=== PATIENT | male | born 1980 | race Caucasian/White ===

== ENCOUNTER 2017-02-03 20:42 | Inpatient (IN) | payer MEDICAID, OTHER ==
[~2017-02-03] VITALS: Ht 162.6 cm; Wt 65.6 kg
[2017-02-03 20:58] VITALS: BP 141/94
--- NOTE | 2017-02-03 21:10 | NUR ---
Pt placed in a chair in view of staff until a bed is available.
--- NOTE | 2017-02-03 22:15 | NUR ---
PATIENT TO ER BED 7.
--- NOTE | 2017-02-03 22:30 | NUR ---
PATIENT BEING EVALUATED BY DR. TREVINO.
[2017-02-03 23:09] LABS: BASOPHILS # (AUTO) 0.3 K/uL (0.00-0.22); BASOPHILS % (AUTO) 2.5 % (0.0-2.0); EOSINOPHILS # (AUTO) 0.1 K/uL (0-0.4); HEMATOCRIT 45.8 % (36-52); HEMOGLOBIN 15.1 g/dL (12.0-18.0); LYMPHOCYTES # (AUTO) 1.4 K/uL (2.0-11.5); LYMPHOCYTES % (AUTO) 13.5 % (20.5-51.1); MEAN CORPUSCULAR HEMOGLOBIN 29 pg (27-31); MEAN CORPUSCULAR HGB CONC 33 g/dL (33-37); MEAN CORPUSCULAR VOLUME 87 fL (80-94); MONOCYTES # (AUTO) 0.6 K/uL (0.8-1.0); MONOCYTES % (AUTO) 5.7 % (1.7-9.3); NEUTROPHILS # (AUTO) 8.3 K/uL (1.8-7.7); PLATELET COUNT (AUTO) 258 K/uL (140-450); RED BLOOD CELL COUNT(AUTO) 5.28 MIL/uL (4.20-6.10); RED CELL DISTRIBUTION WIDTH 12.1 % (11.6-13.7); WHITE BLOOD COUNT (AUTO) 10.7 K/uL (4.8-10.8)
[2017-02-03 23:13] LABS: NEUTROPHILS % (AUTO) 77.3 % (42.2-75.2)
[2017-02-03 23:15] LABS: ACETAMINOPHEN < 0.5 ug/ml (10-30); ALANINE AMINOTRANSFERASE 62 U/L (12-78); ALBUMIN 4.2 g/dL (3.4-5.0); ALCOHOL, BLOOD 117 mg/dL (<3); ALKALINE PHOSPHATASE 126 U/L (46-116); ANION GAP 16.9 (8-16); ASPARTATE AMINOTRANSFERASE 51 U/L (15-37); CALCIUM 8.5 mg/dL (8.5-10.1); CARBON DIOXIDE 27.1 mmol/L (21-32); CHLORIDE 97 mmol/L (98-107); CREATINE KINASE, TOTAL 246 U/L (39-308); CREATININE 0.9 mg/dL (0.6-1.3); GFR ARICAN-AMERICAN 121 mL/min (>90); GFR NON ARICAN-AMERICAN 100 mL/min (>90); GLUCOSE 102 mg/dL (74-106); SALICYLATE < 2.8 mg/dL (2.8-20.0); SODIUM SERUM 138 mmol/L (136-145); TOTAL BILIRUBIN 1.2 mg/dL (0.0-1.0); TOTAL PROTEIN, SERUM 7.8 g/dL (6.4-8.2); UREA NITROGEN, BLOOD 5 mg/dL (7-18)
[2017-02-04] MEDS ORDERED: NACL 0.9% 1,000 ML IV ONE (00:05)
[2017-02-04 00:40] LABS: APPEARANCE,URINE CLEAR (CLEAR); BILIRUBIN,URINE NEGATIVE (NEGATIVE); BLOOD, URINE NEGATIVE (NEGATIVE); COLOR,URINE YELLOW (YELLOW); LEUKOCYTE ESTERASE ,URINE NEGATIVE (NEGATIVE); NITRITE, URINE NEGATIVE (NEGATIVE); PROTEIN,URINE NEGATIVE (NEGATIVE); UGLUCOSE NEGATIVE (NEGATIVE); UROBILINOGEN,URINE 0.2 EU/dL (0.2 - 1)
[2017-02-04] MEDS ORDERED: ACETAMINOPHEN 325 MG TAB PO PRN (00:40)
[2017-02-04] MEDS ORDERED: LORazepam 1 MG TAB PO PRN (00:40)
[2017-02-04] MEDS ORDERED: MORPHINE SULFATE 2 MG/ML SYR IVP PRN (00:40)
[2017-02-04] MEDS ORDERED: DOCUSATE SODIUM 100 MG GELCAP PO PRN (00:40)
[2017-02-04 00:52] LABS: AMPHETAMINE, URINE NEG. ng/ml (NEG <=1000); BARBITURATE, URINE NEG. ng/ml (NEG <=200); BENZODIAZEPINE, URINE NEG. ng/mL (NEG <=200); CANNABINOID, URINE NEG. ng/mL (NEG <=50); COCAINE, URINE NEG. ng/mL (NEG <=300); OPIATE, URINE NEG. ng/mL (NEG <=2000); PHENCYCLIDINE SCREEN,URINE NEG. ng/mL (NEG <=25)
[2017-02-04 00:55] LABS: BACTERIA,URINE None Seen /HPF (None Seen); RBC,URINE NONE SEEN /HPF (0-5); SQUAMOUS EPITHELIAL CELL,UR None Seen /LPF (0-3 (FEW)); WBC,URINE NONE SEEN /HPF (0-5)
[2017-02-04 01:18] LABS: PARTIAL THROMBOPLASTIN TIME 25.1 secs (22-35.6); PROTHROMBIN TIME 10.1 secs (10.8-13.4)
[2017-02-04 01:29] LABS: FREE T4 (FREE THYROXINE) 1.26 ng/dL (0.76-1.46); MAGNESIUM 2.1 mg/dL (1.8-2.4); PHOSPHORUS 3.7 mg/dL (2.5-4.9); THYROID STIMULATING HORMONE 1.75 uIU/mL (0.34-3.76)
--- NOTE | 2017-02-04 01:59 | NUR ---
Patient will be admitted to care of DR WHELAN. Admited to TELE (ICU CONVENIENCE). Will go to BED 6. Belongings list completed. Report to CECILE CHRISTOPHER.
--- NOTE | 2017-02-04 02:50 | NUR ---
ADMITTED THIS 36 YEAR OLD MALE PATIENT FROM ER PER [facility], DUE TO NOT FEELING WELL WITH THE ADMITTING DIAGNOSIS OF SUICIDAL IDEATION ON 5150 HOLD. ASSISTED TO ICU 6; ADMISSION PROTOCOL/ ASSESSMENT DONE; TELE STATUS. PATIENT IS ALERT AND ORIENTED. HOOKED TO RELATIONS COORDINATOR, SCOPE SHOWS ON SINU RHYTHM TO TACHY HR 82/MIN NO ARRHYTHMIAS SEEN. IV CANNULA ON LEFT FOREARM AND STARTED ON IVF NORMAL SALINE 100 ML/HR. ON ROOM AIR, BREATHING EVEN AND UNLABORED.
[2017-02-04] MEDS: NACL 0.9% 1,000 ML IV SCH ×4 (02:58→22:54)
--- NOTE | 2017-02-04 03:00 | NUR ---
MRSA SCREENING DONE; SPECIMENT SENT TO LAB.
[2017-02-04 04:00] VITALS: BP 119/65
[2017-02-04] MEDS: LORazepam 1 MG TAB PO SCH ×3 (05:30→17:08)
[2017-02-04 05:48] LABS: BASOPHILS # (AUTO) 0.3 K/uL (0.00-0.22); BASOPHILS % (AUTO) 2.4 % (0.0-2.0); EOSINOPHILS # (AUTO) 0.2 K/uL (0-0.4); EOSINOPHILS % (AUTO) 2.1 % (0.0-4.0); HEMATOCRIT 42.8 % (36-52); HEMOGLOBIN 14.5 g/dL (12.0-18.0); LYMPHOCYTES # (AUTO) 1.1 K/uL (2.0-11.5); LYMPHOCYTES % (AUTO) 10.4 % (20.5-51.1); MEAN CORPUSCULAR HEMOGLOBIN 29 pg (27-31); MEAN CORPUSCULAR HGB CONC 34 g/dL (33-37); MEAN CORPUSCULAR VOLUME 86 fL (80-94); MONOCYTES # (AUTO) 0.7 K/uL (0.8-1.0); MONOCYTES % (AUTO) 7.1 % (1.7-9.3); NEUTROPHILS # (AUTO) 8.1 K/uL (1.8-7.7); PLATELET COUNT (AUTO) 191 K/uL (140-450); RED BLOOD CELL COUNT(AUTO) 4.97 MIL/uL (4.20-6.10); RED CELL DISTRIBUTION WIDTH 12.1 % (11.6-13.7); WHITE BLOOD COUNT (AUTO) 10.4 K/uL (4.8-10.8)
[2017-02-04 05:56] LABS: ANION GAP 11.8 (8-16); CALCIUM 7.8 mg/dL (8.5-10.1); CARBON DIOXIDE 27.6 mmol/L (21-32); CREATININE 0.8 mg/dL (0.6-1.3); POTASSIUM 3.4 mmol/L (3.5-5.1)
[2017-02-04 06:00] LABS: ALCOHOL, BLOOD < 3 mg/dL (<3); PHOSPHORUS 3.3 mg/dL (2.5-4.9)
--- NOTE | 2017-02-04 06:00 | NUR ---
V/S STABLE AND WITHIN NORMAL RANGE. SLEPT AT LONG INTERVAL.
[2017-02-04 08:00] VITALS: BP 118/72
--- NOTE | 2017-02-04 08:00 | NUR ---
RECEIVE PATIENT SLEEPING. AWAKEN EASILY. ALERT AND ORIENTED TO NAME PLACE AND TIME. HE STATED THAT HE DO NOT FEEL WELL BUT WAS NON-SPECIFIC WITH COMPLAINT. FELT HANGER SHOWS SINUS RHYTHM. BREAKFAST TRAY SET UP.
--- NOTE | 2017-02-04 08:30 | NUR ---
AFTER EATING PART OF HIS BREAKFAST, HE VOMITED ALL UNDIGESTED FOOD. MEDICATED WITH IV ZOFRAN 4MG. WILL CONTINUE TO MONITOR.
[2017-02-04] MEDS: ONDANSETRON 4 MG/2 ML VIAL IM/IVP PRN ×2 (08:34→14:04)
[2017-02-04] MEDS ORDERED: PNEUMOCOCCAL VACCINE 23 MCG/0.5 ML VIAL IMVAC SCH (09:00)
--- NOTE | 2017-02-04 09:30 | NUR ---
NO S/S OF NAUSEA. GIVEN ICE CHIPS AND TOLERATED WELL. AM MEDICATION GIVEN. PATIENT SAYS THAT HE DO NOT FEEL NAUSEATED @ THIS TIME. WILL CONTINUE TO MONITOR.
[2017-02-04] MEDS: FOLIC ACID 1 MG TAB PO SCH ×2 (09:36→09:39)
[2017-02-04] MEDS: MULTIVITAMIN 1 TAB PO SCH (09:39)
[2017-02-04] MEDS: THIAMINE 100 MG TAB PO SCH (09:39)
[2017-02-04] MEDS: HYDROcodone/APAP 7.5/325 MG 1 TAB PO PRN ×2 (09:40→15:37)
[2017-02-04] MEDS: ESCITALOPRAM 20 MG TAB PO SCH (09:40)
[2017-02-04 10:00] VITALS: BP 120/60
--- NOTE | 2017-02-04 10:32 | NUR ---
CONTINUE TO MONITOR . HOB ELEVATED @ 35 DEGREES. NO S/S OF [place] @ THIS TIME.
--- NOTE | 2017-02-04 12:15 | NUR ---
Patient had lunch and shortly after he vomited large amount of undigested food. Dr. Preeti gutierrez at this time and informed. Plan to place on clear liquids for a while.
--- NOTE | 2017-02-04 14:00 | NUR ---
Patient medicated for the nausea. He c/o feeling anxious and depressed. Medicated with ativan 2mg po.
[2017-02-04] MEDS: LORazepam 1 MG TAB PO PRN (14:44)
--- NOTE | 2017-02-04 14:57 | NUR ---
Watching TV. No s/s of discomfort.
[2017-02-04 16:00] VITALS: BP 131/68
--- NOTE | 2017-02-04 16:00 | NUR ---
PO intake of saltine crackers, ice chips and water. No nausea/vomiting noted. Patient is alert and says that he feel depressed and request for ativan. He is polite and cooperative.
--- NOTE | 2017-02-04 18:00 | NUR ---
Resting quietly and watching TV. No s/s of discomfort.
--- NOTE | 2017-02-04 19:00 | NUR ---
Report given to film processing shift supervisor nurse Naye.
--- NOTE | 2017-02-04 19:34 | NUR ---
RECEIVED REPORT FROM ALVA CHRISTOPHER. PATIENT IS RESTING IN BED, BUT IS AROUSED BY NAME. PATIENT IS TELEMETRY STATUS. NO SIGNS OF SOB OR DISTRESS NOTED. BREATHING IS EVEN AND UNLABORED. THERE IS A #20 IN THE LEFT FOREARM RECEIVING NORMAL SALINE AT 100 ML/HR. SITE IS DRY, INTACT, AND ASYMPTOMATIC. SCDS ARE IN PLACE FOR VTE PROPHYLAXIS. EXPLAINED PLAN OF CARE TO INCLUDE TELEMETRY MONITORING, SCHEDULED MEDICATIONS, AND CLOSE OBSERVATION R/T DX SUICIDAL IDEATION AND 5150 HOLD. PATIENT VERBALIZED UNDERSTANDING. PATIENT'S NEEDS MET AT THIS TIME. HOB AT 30 DEGREES WITH BED IN LOW POSITION. WILL CONTINUE TO MONITOR PATIENT.
[2017-02-04 20:00] VITALS: BP 125/76
--- NOTE | 2017-02-04 21:45 | NUR ---
PATIENT RESTING IN BED. NO SIGNS OF DISTRESS OR DISCOMFORT NOTED. CONTINUE TO MONITOR PATIENT.
[2017-02-05] VITALS: BP 119/63
--- NOTE | 2017-02-05 00:20 | NUR ---
PATIENT REQUESTED SNACK. PROVIDED PATIENT WITH 2 PACKETS OF SALTINES AND 1 BOX OF APPLE JUICE WITH CUP OF ICE CHIPS. PATIENT UNABLE TO TOLERATE APPLE JUICE WITH ICE CHIPS AND BEGAN COUGHING WITH NO SPUTUM NOTED. INSTRUCTED PATIENT TO NOT DRINK COLD LIQUIDS AND OFFERED PATIENT CHICKEN BROTH. PATIENT AGREED. CONTINUE TO MONITOR.
--- NOTE | 2017-02-05 00:40 | NUR ---
PATIENT'S COUGHING SUBSIDED. PATIENT RESTING COMFORTABLY IN BED. WILL CONTINUE TO MONITOR PATIENT.
[2017-02-05 04:00] VITALS: BP 117/69
--- NOTE | 2017-02-05 04:10 | NUR ---
PATIENT RESTING COMFORTABLY IN BED WITH NO SIGNS OF SOB OR DISCOMFORT NOTED. WILL CONTINUE TO MONITOR PATIENT.
--- NOTE | 2017-02-05 04:50 | NUR ---
REPRODUCTION TECHNICIAN AT BEDSIDE FOR SCHEDULED LAB DRAWS.
[2017-02-05 04:58] LABS: BASOPHILS # (AUTO) 0.1 K/uL (0.00-0.22); BASOPHILS % (AUTO) 1.2 % (0.0-2.0); EOSINOPHILS # (AUTO) 0.4 K/uL (0-0.4); EOSINOPHILS % (AUTO) 4.1 % (0.0-4.0); HEMOGLOBIN 13.4 g/dL (12.0-18.0); LYMPHOCYTES % (AUTO) 11.8 % (20.5-51.1); MEAN CORPUSCULAR HEMOGLOBIN 29 pg (27-31); MEAN CORPUSCULAR HGB CONC 34 g/dL (33-37); MEAN CORPUSCULAR VOLUME 86 fL (80-94); MONOCYTES # (AUTO) 0.4 K/uL (0.8-1.0); MONOCYTES % (AUTO) 4.6 % (1.7-9.3); NEUTROPHILS # (AUTO) 6.9 K/uL (1.8-7.7); NEUTROPHILS % (AUTO) 78.3 % (42.2-75.2); PLATELET COUNT (AUTO) 169 K/uL (140-450); RED BLOOD CELL COUNT(AUTO) 4.64 MIL/uL (4.20-6.10); RED CELL DISTRIBUTION WIDTH 12.3 % (11.6-13.7)
[2017-02-05] MEDS: LORazepam 1 MG TAB PO SCH ×3 (04:58→20:55)
--- NOTE | 2017-02-05 06:05 | NUR ---
PATIENT RESTING COMFORTABLY IN BED WITH NO SIGNS OF SOB OR DISCOMFORT NOTED. BREATHING IS EVEN AND UNLABORED. WILL CONTINUE TO MONITOR PATIENT.
[2017-02-05 06:21] LABS: ANION GAP 9.8 (8-16); CALCIUM 7.9 mg/dL (8.5-10.1); CARBON DIOXIDE 26.9 mmol/L (21-32); CREATININE 0.8 mg/dL (0.6-1.3); POTASSIUM 3.7 mmol/L (3.5-5.1)
--- NOTE | 2017-02-05 07:10 | NUR ---
PATIENT IN STABLE CONDITION. ALL PATIENT'S NEEDS ATTENDED TO DURING SHIFT. ENDORSED CONTINUITY OF CARE TO CHARGE NURSE NINI CHRISTOPHER.
[2017-02-05 07:57] LABS: WHITE BLOOD COUNT (AUTO) 8.8 K/uL (4.8-10.8)
[2017-02-05 08:00] VITALS: BP 121/71
--- NOTE | 2017-02-05 08:00 | NUR ---
AWAKE AND ALERT. COOPERATIVE. STATES HE STILL HAS SUICIDAL THOUGHTS BY JUMPING OFF A BRIDGE AT TIMES. IV 0.9 NS INFUSING AT 100 ML/HR VIA LEFT FA IV SITE. BREAKFAST SERVED. FED SELF. ATE 75%.
[2017-02-05] MEDS: ESCITALOPRAM 20 MG TAB PO SCH (08:49)
[2017-02-05] MEDS: THIAMINE 100 MG TAB PO SCH (08:49)
[2017-02-05] MEDS: FOLIC ACID 1 MG TAB PO SCH (08:49)
[2017-02-05] MEDS: MULTIVITAMIN 1 TAB PO SCH (08:50)
[2017-02-05] MEDS: NACL 0.9% 1,000 ML IV SCH ×2 (08:50→20:57)
[2017-02-05 09:44] LABS: T4 (THYROXINE) 8.4 ug/dL (4.5-12.0)
--- NOTE | 2017-02-05 09:45 | NUR ---
ASSISTED TO BEDSIDE COMMODE. GAIT STEADY. HAD LARGE AMT. SOFT FORMED BROWNISH STOOLS. BATH AND ORAL CARE DONE.
--- NOTE | 2017-02-05 10:17 | NUR ---
PATIENT HAS BEEN SCREENED AND CATEGORIZED LOW NUTRITION RISK. PATIENT WILL BE SEEN WITHIN 7 DAYS OF ADMISSION. 02/10/[address]
[2017-02-05] MEDS ORDERED: PROBIOTIC SCREEN 1 EA MISC MC PRN (10:55)
[2017-02-05 12:00] VITALS: BP 125/91
--- NOTE | 2017-02-05 12:33 | NUR ---
CM NOTE INITIAL REVIEW FAXED TO MARIA R GRANT [phone] [facility] PH# [phone] AND TO OLIVIA JESUS [phone] PH# [phone] [place] [id number] Addendum: 02/05/17 at 1236 by Sarah Fischer [facility] TRACKING# [id number]
--- NOTE | 2017-02-05 12:54 | NUR ---
SS NOTE: SENT PSYCH PLACEMENT INQUIRY TO [facility] (PT HAS [facility]), RECEIVED FAX CONFIRMATION
--- NOTE | 2017-02-05 13:35 | NUR ---
PT. VOMITED LARGE AMOUNT OF UNDIGESTED FOOD. STATES HE USUALLY GETS DIZZY/LIGHTHEADED WHEN HE EATS, THEN HE THROWS UP. ZOFRAN [address] ALBERTO NOTIFIED.
[2017-02-05] MEDS: ONDANSETRON 4 MG/2 ML VIAL IM/IVP PRN (13:38)
--- NOTE | 2017-02-05 14:00 | NUR ---
NO N/V. SLEEPING AT THIS TIME.
--- NOTE | 2017-02-05 15:00 | NUR ---
PT MADE AWARE OF CHANGE IN DIET TO CLEAR LIQUIDS.
--- NOTE | 2017-02-05 16:00 | NUR ---
PT. IS LOOKING FOR HIS CLOTHES AND HIS BLACK WALLET WITH ID'S AND KEYS. STATES HE CAME TO THE HOSPITAL WEARING BLUE JEANS, BLUE SHIRT, WHITE SHOES AND WHITE SOCKS. HE ONLY HAS BOXER SHORTS AND WHITE UNDERSHIRT AT BEDSIDE. CHECKED WITH ER, NO BELONGINGS FOUND. SECURITY RAMA AND SHIRA ALSO MADE AWARE.
[2017-02-05] MEDS: LORazepam 1 MG TAB PO PRN (16:35)
--- NOTE | 2017-02-05 16:35 | NUR ---
PT. C/O FEELING VERY ANXIOUS. ASKING FOR SOMETHING TO CALM HIM DOWN. ATIVAN 2 MG PO GIVEN.
[2017-02-05 16:57] VITALS: BP 132/94
--- NOTE | 2017-02-05 17:10 | NUR ---
WATCHING TV. CALM AT THIS TIME.
--- NOTE | 2017-02-05 18:00 | NUR ---
STANDS AT BEDSIDE TO URINATE. TOLERATED ACTIVITY WELL. ATE DINNER, CLEAR LIQUIDS, NO N/V.
--- NOTE | 2017-02-05 19:30 | NUR ---
RECEIVED REPORT FROM AM RN AT BEDSIDE, PT IS AAOX4, ABLE TO FOLLOW COMMANDS AND MAKE NEEDS KNOWN, COOPERATIVE, STILL HAS SUICIDAL THOUGHTS BY JUMPING OFF A BRIDGE AT TIMES PER PATIENT STATED. NO HALLUCINATION AT THIS TIME, VSS, DENIES PAIN, NO SOB/DISTRESS, CLEAR LUNG SOUNDS, ON RA, DENIES CHEST PAIN, SR ON TICKET SALES AGENT, SOFT ABDOMEN WITH ACTIVE BOWEL SOUNDS, CONTINENT WITH B&B'S, ABLE TO MOVE ALL EXTREMITIES, IV SITE TO LEFT FOREARM 20GA RUNNING 0.9 NS AT 50 ML/HR. SKIN IS WARM AND DRY TO TOUCH, SEVERAL BLEEDING SPOTS ON RIGHT ARM NOTED DUE TO SELF SCRATCHING BY PATIENT. EXPLAINED PLAN OF CARE TO PATIENT, PATIENT VERBALIZED UNDERSTANDING, SAFETY MEASURES IN PLACE, CALL LIGHT WITHIN REACH, WILL CONTINUE TO MONITOR.
[2017-02-05 20:00] VITALS: BP 117/84
[2017-02-06] VITALS: BP 122/80
--- NOTE | 2017-02-06 | NUR ---
PT IS ASLEEP IN BED, COOPERATIVE, STILL STATED SUICIDAL THOUGHT, VSS, WILL CONTINUE TO MONITOR.
[2017-02-06 04:00] VITALS: BP 116/68
--- NOTE | 2017-02-06 04:00 | NUR ---
NO CHANGE OF CONDITION AT THIS TIME, COOPERATIVE, VSS.
[2017-02-06] MEDS: LORazepam 1 MG TAB PO SCH ×3 (04:47→20:34)
[2017-02-06 04:50] LABS: BASOPHILS # (AUTO) 0.2 K/uL (0.00-0.22); EOSINOPHILS # (AUTO) 0.5 K/uL (0-0.4); EOSINOPHILS % (AUTO) 6.2 % (0.0-4.0); HEMATOCRIT 41.6 % (36-52); HEMOGLOBIN 13.7 g/dL (12.0-18.0); LYMPHOCYTES # (AUTO) 0.9 K/uL (2.0-11.5); LYMPHOCYTES % (AUTO) 11.1 % (20.5-51.1); MEAN CORPUSCULAR HEMOGLOBIN 29 pg (27-31); MEAN CORPUSCULAR HGB CONC 33 g/dL (33-37); MEAN CORPUSCULAR VOLUME 88 fL (80-94); MONOCYTES # (AUTO) 0.6 K/uL (0.8-1.0); MONOCYTES % (AUTO) 7.4 % (1.7-9.3); NEUTROPHILS # (AUTO) 5.7 K/uL (1.8-7.7); NEUTROPHILS % (AUTO) 72.3 % (42.2-75.2); PLATELET COUNT (AUTO) 167 K/uL (140-450); RED BLOOD CELL COUNT(AUTO) 4.76 MIL/uL (4.20-6.10); RED CELL DISTRIBUTION WIDTH 12.5 % (11.6-13.7); WHITE BLOOD COUNT (AUTO) 7.9 K/uL (4.8-10.8)
[2017-02-06 05:37] LABS: ANION GAP 12.8 (8-16); CARBON DIOXIDE 25.6 mmol/L (21-32); CREATININE 0.8 mg/dL (0.6-1.3); POTASSIUM 3.4 mmol/L (3.5-5.1)
--- NOTE | 2017-02-06 07:44 | NUR ---
RECEIVED REPORT FROM ASHWIN LUND. PT IS A/O X4. VERBALLY RESPONSIVE. ABLE TO MAKE NEEDS KNOWN. DENIES ANY PAIN OR DISCOMFORT. DENIES ANY SUICIDAL THOUGHTS AT THIS MOMENT. DENIES ANY N/V. BILATERAL PERRLA NOTED IN EYES. PT IS ON RA. SATURATING AT 96%. SR ON MONITOR. SKIN IS INTACT. LEFT FOREARM 20 GAUGE PERIPHERAL IV NOTED. INTACT AND PATENT. ABLE TO MOVE ALL EXTREMITIES. ABLE TO AMBULATE WITH STEADY GAIT. PT ABLE TO VOID WITH URINAL. CLEAR YELLOW URINE NOTED. SAFETY PRECAUTION MAINTAINED. CALL LIGHT WITHIN REACH. BED AT LOWEST SETTINGS. WILL CONTINUE TO MONITOR.
[2017-02-06 08:00] VITALS: BP 118/86
--- NOTE | 2017-02-06 08:30 | NUR ---
IV NOTED TO BE CLOTTED. LEFT HAND IV D/C. TOLERATED WELL. NEW IV STARTED IN RIGHT FOREARM. TOLERATED WELL. IV INTACT AND PATENT. BLOOD RETURN NOTED.
[2017-02-06] MEDS: MULTIVITAMIN 1 TAB PO SCH (09:00)
[2017-02-06] MEDS: THIAMINE 100 MG TAB PO SCH (09:00)
--- NOTE | 2017-02-06 09:00 | NUR ---
MEDICATION ADMINISTERED ORDERED. TOLERATED WELL. WILL CONTINUE TO MONITOR FOR CHANGES
[2017-02-06] MEDS: FOLIC ACID 1 MG TAB PO SCH (09:01)
[2017-02-06] MEDS: ESCITALOPRAM 20 MG TAB PO SCH (09:01)
--- NOTE | 2017-02-06 09:55 | NUR ---
DR. GALDAMEZ AT BEDSIDE TO SEE PT. WILL F/U WITH NEW ORDERS.
--- NOTE | 2017-02-06 09:59 | NUR ---
DR. GARCIA AT BEDSIDE TO SEE PT. WILL F/U WITH NEW ORDERS. Addendum: 02/06/17 at 1133 by Vijay Pollack RN NOTIFIED DR. GARCIA OF LOW POTASSIUM. MD ADAMS.
--- NOTE | 2017-02-06 10:45 | NUR ---
MEDICATION ADMINISTERED ORDERED. TOLERATED WELL. WILL CONTINUE TO MONITOR.
[2017-02-06] MEDS: QUEtiapine FUMARATE 25 MG TAB PO SCH ×2 (10:49→20:34)
[2017-02-06 11:23] LABS: HEMOGLOBIN A1C 5.7 % (4.8-5.6)
--- NOTE | 2017-02-06 12:25 | NUR ---
CM NOTE CONCURRENT REVIEW FAXED TO [facility] [phone] [facility] PH# [phone] AND TO OLIVIA [facility] [phone] PH# [phone] [place] [id number] TRACKING# [id number]
--- NOTE | 2017-02-06 13:02 | NUR ---
SS NOTE: SHANNON ANDERSON FROM [facility] ([phone]), PT'S INFORMATION IS PENDING REVIEW
--- NOTE | 2017-02-06 13:30 | NUR ---
MEDICATION GIVEN ORDERED. TOLERATED WELL.
--- NOTE | 2017-02-06 14:30 | NUR ---
SECURITY AT BEDSIDE. ALL BELONGINGS WITH PATIENT. CONTRABAND STILL WITH SECURITY AT THIS TIME
[2017-02-06 16:00] VITALS: BP 108/78
[2017-02-06] MEDS: NACL 0.9% 1,000 ML IV SCH (16:54)
--- NOTE | 2017-02-06 17:36 | NUR ---
PT EATING DINNER. TOLERATING WELL. NO C/O OF N/V. WILL CONTINUE TO MONITOR.
--- NOTE | 2017-02-06 19:16 | NUR ---
REPORT GIVEN TO ASHWIN LUND. PT IS STABLE.
--- NOTE | 2017-02-06 19:16 | NUR ---
RECEIVED REPORT FROM LEANDRA RN AT BEDSIDE, PT IS AAOX4, ABLE TO FOLLOW COMMANDS AND MAKE NEEDS KNOWN, COOPERATIVE, NO SUICIDAL THOUGHTS OR HALLUCINATION AT THIS TIME. VSS, DENIES PAIN, NO SOB/DISTRESS, CLEAR LUNG SOUNDS, ON RA, DENIES CHEST PAIN, SR ON COMPACTING MACHINE OPERATOR/TENDER, SOFT ABDOMEN WITH ACTIVE BOWEL SOUNDS, CONTINENT WITH B&B'S, ABLE TO MOVE ALL EXTREMITIES, IV SITE TO RIGHT FOREARM 20GA RUNNING 0.9 NS AT 50 ML/HR. SKIN IS INTACT, WARM AND DRY TO TOUCH, EXPLAINED PLAN OF CARE TO PATIENT, PATIENT VERBALIZED UNDERSTANDING, SAFETY MEASURES IN PLACE, CALL LIGHT WITHIN REACH, WILL CONTINUE TO MONITOR.
--- NOTE | 2017-02-06 21:00 | NUR ---
SCHEDULED MEDICATION GIVEN, EDUCATED ON MEDICATION INDICATION AND SIDE EFFECTS, PT VERBALIZED UNDERSTANDING.
[2017-02-07] VITALS: BP_SYST 121; BP_SYST 122; BP_DIAS 72; BP_DIAS 79
--- NOTE | 2017-02-07 | NUR ---
PT IS ASLEEP IN BED, NO S/S OF DISTRESS, VSS, NO C/O SUICIDAL IDEATION.
[2017-02-07] MEDS: LORazepam 1 MG TAB PO SCH ×3 (04:57→21:08)
[2017-02-07 05:57] LABS: CALCIUM 8.1 mg/dL (8.5-10.1); CARBON DIOXIDE 27.7 mmol/L (21-32); CREATININE 0.8 mg/dL (0.6-1.3); POTASSIUM 3.7 mmol/L (3.5-5.1)
--- NOTE | 2017-02-07 07:10 | NUR ---
REPORT GIVEN TO ASHWIN RAMIREZ FOR CONTINUE OF CARE, PT IS IN STABLE CONDITION AT THIS TIME.
--- NOTE | 2017-02-07 07:30 | NUR ---
RECEIVED REPORT FROM KEVON RN AT BEDSIDE, PT IS AAOX4, ABLE TO FOLLOW COMMANDS AND MAKE NEEDS KNOWN, PT STATED HE DOES NOT HAVE SUICIDAL THOUGHTS OR HALLUCINATION AT THIS TIME. VSS,BEDSIDE MONITOR SHOWS SR. PT DENIES PAIN, NO SOB/DISTRESS, CLEAR LUNG SOUNDS, SOFT ABDOMEN WITH ACTIVE BOWEL SOUNDS, ABLE TO MOVE ALL EXTREMITIES, IV SITE TO RIGHT FOREARM 20GA RUNNING 0.9 NS AT 50 ML/HR. SKIN IS INTACT, WARM AND DRY TO TOUCH, EXPLAINED PLAN OF CARE TO PATIENT, PATIENT VERBALIZED UNDERSTANDING, SAFETY MEASURES IN PLACE, CALL LIGHT WITHIN REACH, WILL CONTINUE TO MONITOR.
[2017-02-07 08:00] VITALS: BP 128/70
[2017-02-07] MEDS: FOLIC ACID 1 MG TAB PO SCH (09:14)
[2017-02-07] MEDS: MULTIVITAMIN 1 TAB PO SCH (09:14)
[2017-02-07] MEDS: ESCITALOPRAM 20 MG TAB PO SCH (09:14)
[2017-02-07] MEDS: THIAMINE 100 MG TAB PO SCH (09:14)
[2017-02-07] MEDS: QUEtiapine FUMARATE 25 MG TAB PO SCH ×2 (09:15→21:07)
--- NOTE | 2017-02-07 09:30 | NUR ---
DUE MEDS GIVEN, PT TOLERATED WELL.
--- NOTE | 2017-02-07 10:19 | NUR ---
SS NOTE: SHANNON ANDERSON FROM [facility] ([phone]), PT HAS BEEN ACCEPTED BUT THEY DO NOT CURRENTLY HAVE ANY BEDS AVAILABLE
--- NOTE | 2017-02-07 11:19 | NUR ---
CM NOTE CONCURRENT REVIEW FAXED TO [facility] [phone] [facility] PH# [phone] AND TO OLIV[facility] [phone] PH# [phone] [place] [id number] TRACKING# [id number]
--- NOTE | 2017-02-07 12:06 | NUR ---
ASKED PT ANY SUICIDE IDEATION OR PLAN. PT STATED " I AM THINKING ABOUT IT".
--- NOTE | 2017-02-07 15:05 | NUR ---
PT SLEEPING IN BED, NO S/S OF RESPIRATORY DISTRESS NOTED. VSS
[2017-02-07 16:00] VITALS: BP 118/66
--- NOTE | 2017-02-07 19:00 | NUR ---
PT WILL BE TRANSFERRED TO TELE 121 B WITH 1:1 SITTER, REPORT GIVEN TO TARAS CHRISTOPHER.
[2017-02-07 20:00] VITALS: BP 143/89
--- NOTE | 2017-02-07 20:00 | NUR ---
RECEIVED FROM ICU AWAKE,ALERT,ORIENTED. VERBALLY RESPONSIVE. STILL VERBALIZED SUICIDAL THOUGHTS BUT NOTED TO BE PLEASANT AND MORE ENGAGED. AFEBRILE, NOT IN ACUTE DISTRESS. VERBALIZED BEING A LITTLE ANXIOUS. SITTER AT BEDSIDE. VITAL SIGNS ARE OTHERWISE STABLE, WILL CONTINUE TO MONITOR. NEEDS ATTENDED.
--- NOTE | 2017-02-07 21:08 | NUR ---
DUE MEDICATIONS GIVEN SCHEDULED.
[2017-02-07 22:38] VITALS: BP 143/89
[2017-02-08] VITALS: BP 122/79
--- NOTE | 2017-02-08 | NUR ---
ASLEEP, NOT IN ANY KIND OF DISTRESS. NO PAIN OR DISCOMFORT NOTED. SIDE RAILS UP, CALL LIGHT WITHIN REACH. SITTER AT BEDSIDE. KEPT WARM AND COMFORTABLE. VS REMAIN STABLE.
--- NOTE | 2017-02-08 04:00 | NUR ---
ASLEEP,NOT IN ANY KIND OF DISTRESS. NO PAIN OR DISCOMFORT NOTED. NO SIGNIFICANT CHANGE IN CONDITION. SITTER REMAINS AT BEDSIDE.
[2017-02-08] MEDS: LORazepam 1 MG TAB PO SCH ×3 (04:53→21:01)
--- NOTE | 2017-02-08 04:53 | NUR ---
PT. AWAKE,VERY PLEASANT. STATES THAT HIS SUICIDAL THOUGHTS ARE ON AND OFF AND THAT HE HAS NO CONCRETE PLAN AT THIS TIME. PT.A GOOD INSIGHT. DUE MEDICATION GIVEN. SITTER AT BEDSIDE AT ALL TIMES. WILL CONTINUE TO MONITOR. NEEDS ATTENDED.
--- NOTE | 2017-02-08 07:12 | NUR ---
ENDORSED CARE TO CARA RN STABLE.
--- NOTE | 2017-02-08 07:20 | NUR ---
REPORT RECEIVED FROM WEATHERIZATION INSTALLER, PT SLEEPING QUIETLY, RESP EVEN UNLABORED ON ROOM AIR IN NAD, AROUSES EASILY BY VOICE, DENIES PAIN OR DISCOMFORT, PT DENIES SI/HI, PT VERBALLY CONTRACTS FOR SAFETY, PLAN OF CARE REVIEWED, CALL SIMON WITHIN REACH, SIDE RAILS UP, BED LOCKED IN LOW POSITION, PT WITH 1:1 SITTER AT BEDSIDE, WILL CONTINUE TO MONITOR.
[2017-02-08 08:00] VITALS: BP 105/59
[2017-02-08] MEDS: NACL 0.9% 1,000 ML IV SCH (08:49)
[2017-02-08] MEDS: MULTIVITAMIN 1 TAB PO SCH (09:20)
[2017-02-08] MEDS: ESCITALOPRAM 20 MG TAB PO SCH (09:20)
[2017-02-08] MEDS: THIAMINE 100 MG TAB PO SCH (09:20)
[2017-02-08] MEDS: FOLIC ACID 1 MG TAB PO SCH (09:21)
[2017-02-08] MEDS: QUEtiapine FUMARATE 25 MG TAB PO SCH ×2 (09:21→21:01)
--- NOTE | 2017-02-08 12:29 | NUR ---
SS NOTE: SHANNON FELIX FROM [facility] ([phone]), PT HAS BEEN APRROVED BUT THEY DO NOT CURRENTLY HAVE ANY BEDS AVAILABLE
--- NOTE | 2017-02-08 13:40 | NUR ---
DUE MED GIVEN, PT DELORIS WELL, PT AWAKE ALERT, WALKING AROUND IN ROOM WITH STEADY GAIT, PT ADMITS STILL HEARING VOICES INTERMITTENTLY, PT REFUSES TO ELABORATE ON WHAT THE VOICES ARE SAYING, PT DENIES SI OR HI NOW, PT CALM AND INTERACTS PLEASANTLY, PT REMAINS ON 1:1 WATCH, PT AWARE OF PLAN, AWAITING BED AVAILABILITY AT [facility].
--- NOTE | 2017-02-08 14:40 | NUR ---
CM NOTE CONCURRENT REVIEW FAXED TO [facility] [phone] [facility] PH# [phone] AND TO OLIV[facility] [phone] PH# [phone] [place] [id number] TRACKING# [id number]
[2017-02-08 16:00] VITALS: BP 123/81
--- NOTE | 2017-02-08 18:40 | NUR ---
DR MUHAMMAD AT BEDSIDE
--- NOTE | 2017-02-08 19:27 | NUR ---
REPORT GIVEN TO FURNACE OPERATOR AND TENDER NURSE, PT IN STABLE CONDITION.
--- NOTE | 2017-02-08 20:00 | NUR ---
RECEIVED AWAKE, ALERT,ORIENTED. AFEBRILE, NOT IN ACUTE DISTRESS. DENIES PAIN BUT VERBALIZED FEELING A LITTLE ANXIOUS. DENIES SUICIDAL THOUGHTS AND CONCRETE PLAN AT THIS TIME. NOTED TO BE VERY PLEASANT, MORE ENGAGED AND WITH A VERY GOOD INSIGHT. PT. TAKEN OFF 5150 HOLD AND 1:1 SITTER BY CLINICAL PSYCHOLOGIST ARISTEO SANTIZO PHD WHO WAS IN THE UNIT AROUND SHIFT CHANGE. PT. MAY BE DISCHARGED FROM PSYCHIATRIC POINT OF VIEW PER ONCE MEDICALLY CLEARED. IV FLUIDS NORMAL SALINE INFUSING AT 50 ML/HR VIA RIGHT FOREARM # 20 IV LINE. SAO2=99% ON ROOM AIR. VS STABLE, WILL CONTINUE TO MONITOR. NEEDS ATTENDED.
--- NOTE | 2017-02-08 21:01 | NUR ---
DUE MEDICATIONS GIVEN SCHEDULED.
[2017-02-09] VITALS: BP 101/69
--- NOTE | 2017-02-09 | NUR ---
ASLEEP, NOT IN ANY KIND OF DISTRESS. NO PAIN OR DISCOMFORT NOTED. SIDE RAILS UP, CALL LIGHT WITHIN REACH. KEPT WARM AND COMFORTABLE. VS REMAIN STABLE. WILL CONTINUE TO MONITOR.
--- NOTE | 2017-02-09 04:00 | NUR ---
ASLEEP, NOT IN ACUTE DISTRESS. NO PAIN OR DISCOMFORT NOTED. CONDITION REMAINS STABLE. WILL CONTINUE TO MONITOR.
[2017-02-09] MEDS: LORazepam 1 MG TAB PO SCH ×2 (05:00→12:06)
--- NOTE | 2017-02-09 07:10 | NUR ---
ENDORSED CARE TO CARA RN.
--- NOTE | 2017-02-09 07:20 | NUR ---
REPORT RECEIVED FROM CERAMIC CHEMIST NURSE, PT SLEEPING QUIETLY, RESP EVEN UNLABORED ON RA, PT AROUSES EASILY TO VOICE, PT DENIES PAIN OR DISCOMFORT, PT PLEASANT AND COOPERATIVE, PLAN OF CARE REVIEWED, DENIES ANY IMMEDIATE NEEDS, CALL SIMON WITHIN REACH, SIDE RAILS UP, BED LOCKED IN LOW POSITION, WILL CONTINUE TO MONITOR.
[2017-02-09] MEDS: NACL 0.9% 1,000 ML IV SCH (07:41)
[2017-02-09 08:00] VITALS: BP 124/69
[2017-02-09] MEDS: QUEtiapine FUMARATE 25 MG TAB PO SCH (08:44)
[2017-02-09] MEDS: FOLIC ACID 1 MG TAB PO SCH (08:44)
[2017-02-09] MEDS: THIAMINE 100 MG TAB PO SCH (08:44)
[2017-02-09] MEDS: MULTIVITAMIN 1 TAB PO SCH (08:44)
[2017-02-09] MEDS: ESCITALOPRAM 20 MG TAB PO SCH (08:45)
--- NOTE | 2017-02-09 10:52 | NUR ---
CM NOTE CONCURRENT REVIEW FAXED TO [place] [facility] [phone] [facility] PH# [phone] AND TO OLIVIA [facility] [phone] PH# [phone] [place] [id number] TRACKING# [id number]
[2017-02-09] MEDS ORDERED: LORA-476 PO (15:15)
[2017-02-09] MEDS ORDERED: QUET25TA46 PO (15:15)
[2017-02-09 16:00] VITALS: BP 128/72
--- NOTE | 2017-02-09 16:00 | NUR ---
DISCHARGE INSTRUCTION AND RX GIVEN AND EXPLAINED TO PT, PT VERBALIZED FULL UNDERSTANDING, PT PROVIDED WITH APPOINTMENT INFO FOR FOLLOW UP, PT UP AMBULATING WITH STEADY GATI, PT DENIES SI/HI PLANS, PT SMILING AND LAUGHING, PLEASANTLY CONVERSING DURING DISCHARGE, PT STATES HE PLANS TO GO TO STORAGE UNIT IN [place], BUS PASS PROVIDED, INFORMATION ON HOME LESS RESOURCES PROVIDED TO PT BY SS, IV DC'D, CATH TIP INTACT, BLEEDING CONTROLLED, ESCORTED OUT BY CHIEF SECURITY AND SAFETY OFFICER AMBULATORY.
== END 2017-02-09 16:00 | disposition home or self-care (01) | DRG 52 ==
LOC: MED 20:42 → MIC 02-04 00:50 → MTU 02-07 19:45
PROVIDERS: ADMIT Family Medicine; ATTEND Family Medicine
DX: G92 Toxic encephalopathy (principal); F33.3 Major depressive disorder, recurrent, severe with psychotic symptoms; R45.851 Suicidal ideations; F10.129 Alcohol abuse with intoxication, unspecified; E78.5 Hyperlipidemia, unspecified; E87.6 Hypokalemia; Y90.5 Blood alcohol level of 100-119 mg/100 ml; F41.9 Anxiety disorder, unspecified; F41.0 Panic disorder [episodic paroxysmal anxiety]; Z59.0 Homelessness
CPT/HCPCS: 36415; 80048; 80053; 80305; 81001; 82150; 82550; 83036; 83690; 83735; 83880; 84100; 84436; 84439; 84443; 84479; 85025; 85610; 85730; 87081; 90732; 93005; 96360; 99285; G0480; G0482; J2405; J7030

== ENCOUNTER 2017-07-09 19:31 | Inpatient (IN) | payer MEDICAID, OTHER ==
[~2017-07-09] VITALS: Ht 162.6 cm; Wt 63.7 kg
[~2017-07-09 19:31] MED LIST: LORA-476 PO; QUET25TA46 PO
[2017-07-09 19:37] VITALS: BP 140/91
--- NOTE | 2017-07-09 19:43 | NUR ---
PT TAKEN TO BED 6
--- NOTE | 2017-07-09 19:44 | NUR ---
MARGARITO RODRIGUEZ CALLED TO REQUEST AN EVALUATING ON PT FOR A 5150 HOLD. PER AGENT 367 OFFICER WILL DISTPATCH TO THIS [facility].
--- NOTE | 2017-07-09 19:47 | NUR ---
Dr. Hardin evaluating patient at bedside.
--- NOTE | 2017-07-09 19:50 | NUR ---
36/M PRESENTS WITH SUICIDAL IDEATION, HX OF SCHIZOPHRENIA. PT STATES "IM HEARING VOICES TELLING ME TO KILL MYSELF". PT REPORTS HE HAS BEEN OFF HIS MEDICATIONS X 1 MONTH DUE TO NOT LIKE SIDE EFFECTS, LAST PSYCHIATRY VISIT WAS 2 MONTHS AGO. PT WAS ON 5150 APPRX 3 MONTHS AGO AND WAS IN A [facility]. PT DENIES ANY CONCRETE PLANS TO KILL HIMSELF AND STATES "I DO NOT WANT TO KILL MYSELF" DENIES ANY PAIN AT THIS TIME, DENIES SOB/CP, DENIES FEVER, N/V/D.
[2017-07-09 20:21] LABS: BASOPHILS # (AUTO) 0.1 K/uL (0.00-0.22); BASOPHILS % (AUTO) 1.6 % (0.0-2.0); EOSINOPHILS # (AUTO) 0.1 K/uL (0-0.4); HEMATOCRIT 51.1 % (36-52); LYMPHOCYTES % (AUTO) 15.2 % (20.5-51.1); MEAN CORPUSCULAR HEMOGLOBIN 30 pg (27-31); MEAN CORPUSCULAR HGB CONC 33 g/dL (33-37); MEAN CORPUSCULAR VOLUME 90 fL (80-94); MONOCYTES # (AUTO) 0.5 K/uL (0.8-1.0); MONOCYTES % (AUTO) 7.7 % (1.7-9.3); NEUTROPHILS # (AUTO) 5.2 K/uL (1.8-7.7); NEUTROPHILS % (AUTO) 73.5 % (42.2-75.2); PLATELET COUNT (AUTO) 219 K/uL (140-450); RED BLOOD CELL COUNT(AUTO) 5.71 MIL/uL (4.20-6.10); RED CELL DISTRIBUTION WIDTH 12.6 % (11.6-13.7); WHITE BLOOD COUNT (AUTO) 6.9 K/uL (4.8-10.8)
--- NOTE | 2017-07-09 20:27 | NUR ---
[place] [employer] AT BEDSIDE
--- NOTE | 2017-07-09 20:30 | NUR ---
MARGARITO RODRIGUEZ PLACED PT ON 5150 HOLD. PT RESTING ON BED COMFORTABLY. SECURITY HAS HOLD OF BELONGINGS
[2017-07-09 20:55] LABS: ANION GAP 16.3 (8-16); CARBON DIOXIDE 28.2 mmol/L (21-32); CHLORIDE 100 mmol/L (98-107); GLUCOSE 113 mg/dL (74-106); POTASSIUM 3.5 mmol/L (3.5-5.1); SODIUM SERUM 141 mmol/L (136-145); UREA NITROGEN, BLOOD 6 mg/dL (7-18)
[2017-07-09 20:56] LABS: ACETAMINOPHEN < 0.5 ug/ml (10-30); ALBUMIN 4.8 g/dL (3.4-5.0); ASPARTATE AMINOTRANSFERASE 128 U/L (15-37); CREATININE 0.9 mg/dL (0.7-1.3); GFR ARICAN-AMERICAN 121 mL/min (>90); SALICYLATE < 2.8 mg/dL (2.8-20.0); TOTAL BILIRUBIN 0.8 mg/dL (0.0-1.0)
--- NOTE | 2017-07-09 21:30 | NUR ---
VSS, PT RESTIN QUIETLY ON BED, ALL NEEDS MET AT THIS TIME
--- NOTE | 2017-07-09 22:30 | NUR ---
PT ASLEEP COMFORTABLY ON BED, ALL NEEDS MET AT THIS TIME
[2017-07-09 22:41] LABS: BARBITURATE, URINE NEGATIVE ng/ml (NEG <=200); BENZODIAZEPINE, URINE NEGATIVE ng/mL (NEG <=200); CANNABINOID, URINE NEGATIVE ng/mL (NEG <=50); COCAINE, URINE NEGATIVE ng/mL (NEG <=300); OPIATE, URINE NEGATIVE ng/mL (NEG <=2000); PHENCYCLIDINE SCREEN,URINE NEGATIVE ng/mL (NEG <=25)
--- NOTE | 2017-07-09 23:20 | NUR ---
137/78 BP, HR 112, 98%RA, 0/10, 18RR, 0/10 PAIN. PT ALSO C/O NAUSEA AND REQUESTING ATIVAN. PT QUIET AND COOPERATIVE. CAMDEN BENSON MADE AWARE
[2017-07-09] MEDS ORDERED: LORazepam 2 MG/ML VIAL IVP ONE (23:30)
[2017-07-09] MEDS ORDERED: ONDANSETRON 4 MG/2 ML VIAL IVP ONE (23:30)
[2017-07-09] MEDS ORDERED: NACL 0.9% 1,000 ML IV ONE (23:30)
--- NOTE | 2017-07-10 00:34 | NUR ---
PT ASLEEP AND ALL NEEDS MET AT THIS TIME
[2017-07-10] MEDS ORDERED: MORPHINE SULFATE 2 MG/ML SYR IVP PRN (00:45)
[2017-07-10] MEDS ORDERED: ONDANSETRON 4 MG/2 ML VIAL IVP PRN (00:45)
[2017-07-10] MEDS ORDERED: LORazepam 2 MG/ML VIAL IVP PRN (00:45)
[2017-07-10] MEDS ORDERED: ACETAMINOPHEN 325 MG TAB PO PRN (00:45)
--- NOTE | 2017-07-10 01:20 | NUR ---
PT ASLEEP COMFORTABLY, ALL NEEDS MET AT THIS TIME
--- NOTE | 2017-07-10 01:28 | NUR ---
WAITING FOR ON-CALL NURSE TO COME IN FOR MEDSURG TO CALL REPORT
[2017-07-10 02:15] VITALS: BP 129/83
--- NOTE | 2017-07-10 02:20 | NUR ---
Patient will be admitted to care of DR HAWKINS. Admited to MS WITH SITTER. Will go to room 109B . Belongings WITH SECURITY. Report to CANDY CHRISTOPHER. TRANSPORTED VIA GURNEY, IV PATENT AND INFUSING DURING TRANSPORT, CANDY CHRISTOPHER MADE AWARE
[2017-07-10] MEDS: NACL 0.9% 1,000 ML IV SCH ×2 (02:21→10:43)
--- NOTE | 2017-07-10 02:30 | NUR ---
ADMITTED PATIENT TO THE MED-SURG UNIT, PATIENT AWAKE ALERT ORIENTED X3, NO S/S OF DISTRESS NOTED, RESPIRATION EVEN AND UNLABORED, IV PATENT AND INTACT, INFUSING NS AT 100ML/HR. 5150 SAFETY PRECAUTION MAINTAINED, 1:1 SITTER AT BEDSIDE. ORIENTED PATIENT TO THE ROOM AND PLAN OF CARE DISCUSSED, SAFETY MEASURE ENSURED, WILL CONTINUE TO MONITOR.
--- NOTE | 2017-07-10 04:11 | NUR ---
PATIENT IS SLEEPING, RESPIRATION EVEN AND UNLABORED, NO S/S OF DISTRESS NOTED, RESPIRATION EVEN AND UNLABORED, 1:1 SITTER AT BEDSIDE, SAFETY PRECAUTION MAINTAINED, WILL CONTINUE TO MONITOR.
--- NOTE | 2017-07-10 06:43 | NUR ---
PATIENT IS SLEEPING, RESPIRATION EVEN AND UNLABORED, NO S/S OF DISTRESS NOTED, 1:1 SITTER AT BEDSIDE, SAFETY PRECAUTION MAINTAINED, WILL CONTINUE TO MONITOR.
--- NOTE | 2017-07-10 07:06 | NUR ---
ASSUMED CONTINUITY OF CARE. NO SIGNS AND SYMPTOMS OF ACUTE DISTRESS NOTED. INITIAL ASSESSMENT DONE. NO SUICIDAL THOUGHTS OBSERVED. KEEP SURROUNDINGS SAFE. EXPLAINED DIAGNOSIS, PLAN OF CARE, PAIN MANAGEMENT TEACHING, USE OF BATHROOM/BED. VERBALIZED UNDERSTANDING. CLOSELY MONITORED BY WIL CREWS 1:1.
--- NOTE | 2017-07-10 07:06 | NUR ---
ENDORSED PLAN OF CARE TO DAY SHIFT NURSE KETTY, PATIENT IS IN STABLE CONDITION, NO S/S OF DISTRESS NOTED.
[2017-07-10 08:00] VITALS: BP 127/84
--- NOTE | 2017-07-10 08:00 | NUR ---
Patient's Plan of Care was discussed and reviewed with TILE SHADER: KETTY
--- NOTE | 2017-07-10 08:30 | NUR ---
DR. MCDOWELL CAME, CHECKED PT. CHART, AND SEEN PT..
[2017-07-10] MEDS ORDERED: LORazepam 1 MG TAB PO PRN (08:55)
[2017-07-10] MEDS ORDERED: ENOXAPARIN 40 MG/0.4 ML SYR SUBQ SCH (09:00)
--- NOTE | 2017-07-10 09:05 | NUR ---
PATIENT HAS BEEN SCREENED AND CATEGORIZED LOW NUTRITION RISK. PATIENT WILL BE SEEN WITHIN 7 DAYS OF ADMISSION. 07/16/[address]
--- NOTE | 2017-07-10 09:05 | NUR ---
FAXED INQUIRY TO [facility] PHONE [phone] FAX [phone]
--- NOTE | 2017-07-10 09:35 | NUR ---
FAXED INITIAL REVIEW TO [facility] [phone] PHONE [phone]
[2017-07-10] MEDS ORDERED: MULTIVITAMIN-12 10 ML, THIAMINE 100 MG, FOLIC ACID 1 MG, MAGNESIUM SULFATE 50% 2,000 MG... IV SCH ×5 (10:00)
--- NOTE | 2017-07-10 11:34 | NUR ---
WENT TO BATHROOM. TOLERATED WELL. HAD STEADY GAIT AND BALANCE. CONTINUE TO MONITOR 1:1.
[2017-07-10 12:00] VITALS: BP 120/63
--- NOTE | 2017-07-10 12:30 | NUR ---
RECEIVED A CALL FROM ANGELICA FROM [facility] . THEY HAVE MALE BEDS. HER PHYSICIAN WANTED ANOTHER ALCOHOL LEVEL DRAWN. CALLED LYNDA CHRISTOPHERLEGISLATIVE AIDE NURSE.
--- NOTE | 2017-07-10 13:00 | NUR ---
EXPLAINED TO PT. ABOUT MD ORDER OF TRANSFER TO [facility], D/C INSTRUCTIONS AND TEACHING, DISEASE MANAGEMENT TEACHING. VERBALIZED UNDERSTANDING.
--- NOTE | 2017-07-10 13:57 | NUR ---
LEFT MESSAGE WITH ANGELICA FROM [facility] AWAITING CALL BACK ABOUT ALCOHOL LEVEL.
--- NOTE | 2017-07-10 14:37 | NUR ---
SPOKE WITH ANGELICA FROM [facility] AND GAVE HER THE RESULTS OF THE ALCOHOL LEVEL. SHE SAID THIS PATIENT
--- NOTE | 2017-07-10 14:41 | NUR ---
SPOKE WITH ANGELICA FROM [facility]. THE PATIENT CAN GO TO ROOM [phone] PHONE [phone]. I CALLED LYNDA CHRISTOPHERROBOTIC MACHINE OPERATOR NURSE AND INFORMED HER. I CALL [facility] AND INFORM
--- NOTE | 2017-07-10 14:45 | NUR ---
CALLED BILL ROCK FROM [facility] AND GAVE PT. REPORT REGARDING TRANSFER. INFORMED CHARGE NURSE.
--- NOTE | 2017-07-10 14:50 | NUR ---
CALLED PT. JETHRO WILSON AT , LEFT MESSAGE AND CALL BACK NUMBER REGARDING PT. TRANSFER TO [facility]. INFORMED CHARGE NURSE YAMILET ROCK.
--- NOTE | 2017-07-10 15:30 | NUR ---
D/C VIA GURNEY WITH [facility] MEDICAL TRANSPORTER. AWAKE, ALERT, AND ORIENTED X4. SPEECH CLEAR. NO C/O PAIN. NO SOB, NOTED. CALM QUIET, AND COOPERATIVE. IN STABLE CONDITION. INFORMED CHARGE NURSE YAMILET ROCK.
== END 2017-07-10 15:30 | DRG 775 ==
LOC: MED 19:31 → MTU 07-10 00:47 → OBSVTOIN 07-10 08:32
PROVIDERS: ADMIT Hospitalist; ATTEND Hospitalist
DX: F10.129 Alcohol abuse with intoxication, unspecified (principal); R45.851 Suicidal ideations; F20.9 Schizophrenia, unspecified; J45.909 Unspecified asthma, uncomplicated; K21.9 Gastro-esophageal reflux disease without esophagitis; Y90.8 Blood alcohol level of 240 mg/100 ml or more; Z91.14 Patient's other noncompliance with medication regimen
CPT/HCPCS: 96361; 96372; 96374; 96375; 99285; G0378; 36415; 80053; 80305; 85025; 87081; 93005; A9153; G0480; G0482; J1650; J2060; J2405; J3411; J3475; J3490; J7030

== ENCOUNTER 2017-09-17 19:37 | Inpatient (IN) | payer OTHER ==
[~2017-09-17] VITALS: Ht 162.6 cm; Wt 66.7 kg
[2017-09-17 20:22] VITALS: BP 131/74
--- NOTE | 2017-09-17 21:03 | NUR ---
PT TAKEN TO OF[facility]
--- NOTE | 2017-09-17 21:15 | NUR ---
PT STATES HE IS HEARING VOICES SINCE LAST NIGHT AND THAT HE HAS HAD SOME BEER TODAY. PT STATES HE HAS NOT TAKEN HIS SEROQUEL FOR AT LEAST A MONTH AND HIS OTHER MEDS BECAUSE HE DOES NOT LIKE THE WAY HIS MEDICATIONS MAKE HIM FEEL. MED HX: SCHIZOPHRENIA PT DENIES N/V/D; SKIN IS PINK/WARM/DRY; LUNGS CLEAR BL; HR EVEN AND REGULAR; PT DENIES ANY FEVER, CP, SOB, OR COUGH AT THIS TIME; PATIENT STATES PAIN OF 0/10 AT THIS TIME; VSS; PATIENT POSITIONED FOR COMFORT; HOB ELEVATED; BEDRAILS UP X2; BED DOWN. ER MD MADE AWARE OF PT STATUS.
[2017-09-17 21:26] LABS: ANION GAP 17.5 (8-16); CARBON DIOXIDE 27.2 mmol/L (21-32); CHLORIDE 106 mmol/L (98-107); CREATININE 0.8 mg/dL (0.7-1.3); GFR ARICAN-AMERICAN 139 mL/min (>90); GLUCOSE 95 mg/dL (74-106); POTASSIUM 3.7 mmol/L (3.5-5.1); SODIUM SERUM 147 mmol/L (136-145); UREA NITROGEN, BLOOD 7 mg/dL (7-18)
[2017-09-17 21:34] LABS: BASOPHILS # (AUTO) 0.2 K/uL (0.00-0.22); EOSINOPHILS # (AUTO) 0.2 K/uL (0-0.4); HEMATOCRIT 49.5 % (36-52); HEMOGLOBIN 16.8 g/dL (12.0-18.0); LYMPHOCYTES # (AUTO) 1.5 K/uL (2.0-11.5); MEAN CORPUSCULAR HEMOGLOBIN 30 pg (27-31); MEAN CORPUSCULAR HGB CONC 34 g/dL (33-37); MEAN CORPUSCULAR VOLUME 89 fL (80-94); MONOCYTES # (AUTO) 0.5 K/uL (0.8-1.0); NEUTROPHILS # (AUTO) 3.4 K/uL (1.8-7.7); PLATELET COUNT (AUTO) 330 K/uL (140-450); RED BLOOD CELL COUNT(AUTO) 5.57 MIL/uL (4.20-6.10); RED CELL DISTRIBUTION WIDTH 13.1 % (11.6-13.7); WHITE BLOOD COUNT (AUTO) 5.8 K/uL (4.8-10.8)
--- NOTE | 2017-09-17 21:36 | NUR ---
DR. BENSON EVALUATING PATIENT
[2017-09-17 21:41] LABS: ACETAMINOPHEN < 0.5 ug/ml (10-30); ALBUMIN 4.9 g/dL (3.4-5.0); ASPARTATE AMINOTRANSFERASE 79 U/L (15-37); SALICYLATE < 2.8 mg/dL (2.8-20.0); TOTAL BILIRUBIN 0.3 mg/dL (0.0-1.0)
[2017-09-17 22:02] LABS: BARBITURATE, URINE NEG. ng/ml (NEG <=200); BENZODIAZEPINE, URINE NEG. ng/mL (NEG <=200); CANNABINOID, URINE NEG. ng/mL (NEG <=50); COCAINE, URINE NEG. ng/mL (NEG <=300); OPIATE, URINE NEG. ng/mL (NEG <=2000); PHENCYCLIDINE SCREEN,URINE NEG. ng/mL (NEG <=25)
--- NOTE | 2017-09-17 22:56 | NUR ---
[employer] OFFICER WITH PATIENT
--- NOTE | 2017-09-17 23:16 | NUR ---
PT PLACED ON 5150 HOLD BY MARGARITO RODRIGUEZ
--- NOTE | 2017-09-17 23:17 | NUR ---
MARGARITO RODRIGUEZ PLACED PT ON 5150 HOLD. PT TOLD HER HE WAS HEARING VOICES THAT TOLD HIM TO JUMP ON A BRIDGE AND KILL HIMSELF. HE HAS TRIED THIS IN THE PAST. PT BELONGINGS REMOVED, AND PT PUT IN HOSPITAL GOWN.
--- NOTE | 2017-09-18 00:30 | NUR ---
Patient appears to be resting comfortably in bed. Vital Signs within normal limits. Respirations even and unlabored.
--- NOTE | 2017-09-18 01:30 | NUR ---
PT ALERT AND TALKING APPROPRIATELY. NO ACUTE DISTRESS NOTED.
--- NOTE | 2017-09-18 02:30 | NUR ---
Patient appears to be resting comfortably in bed.
--- NOTE | 2017-09-18 03:30 | NUR ---
Patient appears to be resting comfortably in bed.
--- NOTE | 2017-09-18 04:33 | NUR ---
Patient appears to be resting comfortably in bed. Vital Signs within normal limits. Respirations even and unlabored.
--- NOTE | 2017-09-18 05:30 | NUR ---
PT SLEEPING, NO DISTRESS NOTED.
--- NOTE | 2017-09-18 07:20 | NUR ---
Pt eating breakfast at this time. Tolerating well.
--- NOTE | 2017-09-18 07:38 | NUR ---
Comfort needs met. All needs addressed.
[2017-09-18] MEDS ORDERED: LORazepam 1 MG TAB PO ONE (08:40)
[2017-09-18] MEDS ORDERED: MULTIVITAMIN-12 10 ML, THIAMINE 100 MG, MAGNESIUM SULFATE 50% 2,000 MG, FOLIC ACID 5 MG... IV ONE ×5 (08:40)
--- NOTE | 2017-09-18 09:17 | NUR ---
PT TAKEN TO M/S 109B
[2017-09-18] MEDS: DEXT 5% /NACL 0.9% 1,000 ML IV SCH ×2 (09:20→14:39)
[2017-09-18] MEDS ORDERED: ONDANSETRON 4 MG/2 ML VIAL IVP PRN (09:20)
[2017-09-18] MEDS ORDERED: ACETAMINOPHEN 325 MG TAB PO PRN (09:20)
--- NOTE | 2017-09-18 09:20 | NUR ---
ADMITTED FROM ER VIA GURNEY. AWAKE, ALERT, AND ORIENTED X4. SPEECH CLEAR. NO C/O PAIN. NO SOB, NOTED. CALM, QUIET AND COOPERATIVE. NO SUICIDAL THOUGHTS OBSERVED. KEEP SURROUNDINGS SAFE. EXPLAINED DIAGNOSIS, PLAN OF CARE, PAIN MANAGEMENT TEACHING. VERBALIZED UNDERSTANDING. CLOSELY MONITORED BY WIL CREWS 1:1.
--- NOTE | 2017-09-18 09:20 | NUR ---
Pt transferred to Med/Surg 109-B via [facility]. Jaclyn called to take banana bag to room 109-B.
[2017-09-18 09:30] VITALS: BP 95/63
--- NOTE | 2017-09-18 09:30 | NUR ---
Patient's Plan of Care was discussed and reviewed with REWEAVER: ROSALINE DORAN
[2017-09-18 12:00] VITALS: BP 127/78
--- NOTE | 2017-09-18 12:14 | NUR ---
FAXED REVIEW TO [facility] [phone] PHONE SHAWNA [phone]
--- NOTE | 2017-09-18 15:53 | NUR ---
DR. COLLINS CAME AND SPOKE TO PT. AT BEDSIDE.
--- NOTE | 2017-09-18 19:08 | NUR ---
BEDSIDE REPORT GIVEN TO CECILE ROCK. IVF INFUSING WELL. IN STABLE CONDITION.
--- NOTE | 2017-09-18 19:10 | NUR ---
RECEIVED FROM AM RN IN BED AWAKE AND ALERT. SITTER 1:1. NO SOB. ABLE TO VERBALIZE NEEDS WELL. CALL LIGHT WITH IN REACH AND ENCOURAGED TO CALL FOR ANY HELP HE MAY NEED . DX. SUICIDAL IDEATION. PT. ASKING FOR ATIVAN RT STATED THAT HE FEELS LIKE NERVOUS. WILL MEDICATE REQUESTED.
[2017-09-18 19:51] VITALS: BP 114/64
[2017-09-18] MEDS: QUEtiapine FUMARATE 25 MG TAB PO SCH (19:53)
[2017-09-18] MEDS: LORazepam 1 MG TAB PO PRN (19:54)
--- NOTE | 2017-09-18 20:36 | NUR ---
PT. P.O. MEDICATIONS GIVEN EARLIER. STATED THAT HE IS UNABLE TO SLEEP. ENCOURAGE TO RELAX AND WAIT FOR THE EFFECT OF THE MEDICATIONS HE HAD. RE-ORIENTED TO SEROQUEL MEDICATION AGAIN RT HE STATED THAT HE DOES NOT LIKE THE MEDICATION. EDUCATION RE: SEROQUEL DISCUSSED WITH HIM. ABLE TO UNDERSTAND AND ANSWERS WELL. "OH, I SEE." SITTER IN PLACE.
--- NOTE | 2017-09-19 01:00 | NUR ---
SLEEPING WELL. WAKES UP WHEN AWAKENED. ABLE TO VERBALIZE NEEDS WELL. NO SOB. SITTER 1:1.
[2017-09-19] MEDS: DEXT 5% /NACL 0.9% 1,000 ML IV SCH (01:36)
--- NOTE | 2017-09-19 04:43 | NUR ---
WITH 1:1 SITTER. SLEEPING. ABLE TO WAKE UP EASILY WHEN TOUCHED. CALL LIGHT WITH IN REACH. IVF SITE INTACT AND NO INFILTRATION.
[2017-09-19 05:50] VITALS: BP 117/71
--- NOTE | 2017-09-19 06:10 | NUR ---
PT. AWAKE AT THIS TIME. ABLE TO VERBALIZE WELL. SITTER 1:1. NO UNTOWARD INCIDENT THIS SHIFT. GOOD AFFECT.
--- NOTE | 2017-09-19 07:00 | NUR ---
RECEIVED PATIENT REPORT AT BEDSIDE FROM NIGHT NURSE. PATIENT IS SLEEPING AND EASILY AROUSABLE TO VOICE AND SHOWS NO S/S OF ACUTE DISTRESS ON ROOM AIR. NOTED IV ON THE RT AC WITH IVF'S INFUSING WELL, IV IS PATENT AND INTACT. SKIN INTACT. DENIES PAIN. PATIENT DENIES A/V HALLUCINATIONS, DENIES WANTING TO HARM SELF. PATIENT WAS DISCUSSED POC FOR TODAY, HOSPITAL ENVIRONMENT, AND SITTER AT BEDSIDE FOR ASSISTANCE.
--- NOTE | 2017-09-19 07:33 | NUR ---
SLEEPING. SITTER 1:1 .
[2017-09-19 07:58] VITALS: BP 97/63
[2017-09-19] MEDS: QUEtiapine FUMARATE 25 MG TAB PO SCH ×2 (09:00→20:00)
--- NOTE | 2017-09-19 09:09 | NUR ---
PATIENT HAS BEEN SCREENED AND CATEGORIZED LOW NUTRITION RISK. PATIENT WILL BE SEEN WITHIN 7 DAYS OF ADMISSION. 09/24/[address]
[2017-09-19] MEDS: LORazepam 1 MG TAB PO PRN ×3 (09:19→22:03)
--- NOTE | 2017-09-19 09:21 | NUR ---
PATIENT REFUSED SEROQUEL 25 MG PO, DR GUILLERMO AWARE. PATIENT DID C/O ANXIETY AND WAS GIVEN ATIVAN 1 MG PO. PATIENT SWALLOWED WITHOUT DIFFICULTY, ALL NEEDS MET AT THIS TIME, SITTER AT BEDSIDE.
--- NOTE | 2017-09-19 10:50 | NUR ---
1:1 SITTER, PATIENT RESTING IN BED AND SHOWS NO S/S OF ACUTE DISTRESS ON ROOM AIR.
--- NOTE | 2017-09-19 13:15 | NUR ---
NOWAK 1:1 SITTER AT BEDSIDE, PATIENT RESTING IN BED AND SHOWS NO S/S OF ACUTE DISTRESS ON ROOM AIR.
--- NOTE | 2017-09-19 14:26 | NUR ---
CM NOTE CONCURRENT REVIEW FAXED TO [facility] / FAX# [phone], ATTN: SHAWNA #[phone]
--- NOTE | 2017-09-19 14:32 | NUR ---
NOWAK 1:1 SITTER AT BEDSIDE, PATIENT RESTING IN BED AND SHOWS NO S/S OF ACUTE DISTRESS ON ROOM AIR.
[2017-09-19 16:00] VITALS: BP 108/62
--- NOTE | 2017-09-19 16:05 | NUR ---
PATIENT C/O ANXIETY AND WAS GIVEN ATIVAN 1 MG PO. ALL NEEDS MET AT THIS TIME SITTER AT BEDSIDE.
--- NOTE | 2017-09-19 19:05 | NUR ---
GAVE PATIENT REPORT AT BEDSIDE, PATIENT ENDORSED IN STABLE CONDITION
--- NOTE | 2017-09-19 19:10 | NUR ---
RECEIVED REPORT FROM AM NURSE. PT RESTING IN BED, AOX4, AMBULATORY, ABLE TO VERBALIZE NEEDS. PT DENIES HALLUCINATIONS, SUICIDAL OR HOMICIDAL IDEATIONS AT THIS TIME. PT C/O ANXIETY, WILL MEDICATE WITH ATIVAN PO PRN WHEN DUE. IV ACCESS ASYMPTOMATIC, PATENT AND INTACT. PT'S IVF IS D/C'ED, SALINE LOCKED AT THIS TIME. DISCUSSED AND REVIEWED PLAN OF CARE WITH PT, PT VERBALIZED UNDERSTANDING. ALL NEEDS MET. SAFETY MEASURES ENSURED. CALL LIGHT WITHIN REACH. Addendum: 09/19/17 at 2055 by Ady Rojo RN 1:1 SITTER WITH CLOSE MONITORING MAINTAINED AT BEDSIDE, ENVIRONMENT CHECKED. THERE IS NO CALL LIGHT IN THE ROOM.
[2017-09-19 20:00] VITALS: BP 116/79
--- NOTE | 2017-09-19 20:00 | NUR ---
ADMINISTERED DUE MED WITH EDUCATION, PT VERBALIZED UNDERSTANDING. ALL NEEDS MET. 1:1 SITTER WITH CLOSE MONITORING, SAFETY MEASURES ENSURED.
--- NOTE | 2017-09-19 20:55 | NUR ---
1:1 SITTER WITH CLOSE MONITORING MAINTAINED AT BEDSIDE, ENVIRONMENT CHECKED. THERE IS NO CALL LIGHT IN THE ROOM.
--- NOTE | 2017-09-19 22:02 | NUR ---
PT C/O ANXIETY, ADMINISTERED ATIVAN 1MG PO PRN WITH EDUCATION, PT STATED OK, TOLERATED MED WELL. ALL NEEDS MET. 1:1 SITTER WITH CLOSE MONITORING MAINTAINED, SAFETY MEASURES ENSURED.
[2017-09-20] VITALS: BP 101/64
--- NOTE | 2017-09-20 01:16 | NUR ---
PT SLEEPING COMFORTABLY, 1:1 SITTER WITH CLOSE MONITORING MAINTAINED, SAFETY MEASURES ENSURED.
--- NOTE | 2017-09-20 04:15 | NUR ---
PT SLEEPING COMFORTABLY. RESPIRATIONS EVEN AND UNLABORED. ALL NEEDS MET. 1:1 SITTER AT BEDSIDE WITH CLOSE MONITORING, SAFETY MEASURES ENSURED.
--- NOTE | 2017-09-20 05:40 | NUR ---
RECEIVED CALL FROM [facility]O FROM [facility] ([phone]), WAS NOTIFIED THAT [address] WILL TONIGHT AT 2300, WILL NEED ANOTHER 5150 FORM FROM PSYCH MD TO RENEW. MADE CHARGE NURSE AWARE, WILL ENDORSE TO FOLLOW-UP WITH PSYCH MD.
--- NOTE | 2017-09-20 07:15 | NUR ---
ENDORSED PLAN OF CARE TO AM NURSE. CONDITION STABLE.
--- NOTE | 2017-09-20 07:19 | NUR ---
RECEIVED PATIENT REPORT AT BEDSIDE FROM NIGHT NURSE. PATIENT IS SLEEPING AND EASILY AROUSABLE TO VOICE AND SHOWS NO S/S OF ACUTE DISTRESS ON ROOM AIR. NOTED IV ON THE RT AC SL, IV IS PATENT AND INTACT. SKIN INTACT. DENIES PAIN. PATIENT DENIES A/V HALLUCINATIONS, DENIES WANTING TO HARM SELF. PATIENT WAS DISCUSSED POC FOR TODAY, HOSPITAL ENVIRONMENT, AND SITTER AT BEDSIDE FOR ASSISTANCE. PATIENT VERBALIZED UNDERSTANDING OF CARE.
[2017-09-20 07:49] VITALS: BP 93/62
[2017-09-20] MEDS: LORazepam 1 MG TAB PO PRN ×3 (08:49→22:35)
--- NOTE | 2017-09-20 08:50 | NUR ---
ADMINISTERED SCHEDULED MEDICATIONS. PATIENT SWALLOWED WITHOUT DIFFICULTY, ALL NEEDS MET AT THIS TIME. SITTER AT BEDSIDE.
--- NOTE | 2017-09-20 11:00 | NUR ---
NOWAK 1:1 SITTER AT BEDSIDE, PATIENT RESTING IN BED AND SHOWS NO S/S OF ACUTE DISTRESS ON ROOM AIR.
--- NOTE | 2017-09-20 13:59 | NUR ---
NOWAK 1:1 SITTER AT BEDSIDE, PATIENT RESTING IN BED AND SHOWS NO S/S OF ACUTE DISTRESS ON ROOM AIR.
--- NOTE | 2017-09-20 14:08 | NUR ---
CM NOTE CONCURRENT REVIEW FAXED TO [facility] / FAX# [phone], ATTN: SHAWNA #[phone] PER JED OF [facility]# [phone], NO ACCEPTING PSYCH FACILITY AT THIS TIME. I GAVE HER THE NUMBER TO THE NURSING FLOOR WHERE PATIENT IS IN CASE THERE IS AN ACCEPTING PSYCH FACILITY AT A LATER TIME.
[2017-09-20 16:00] VITALS: BP 115/68
--- NOTE | 2017-09-20 16:23 | NUR ---
PATIENT C/O FEELING ANXIOUS. ADMINISTERED ATIVAN 1 MG PO.
--- NOTE | 2017-09-20 19:32 | NUR ---
GAVE PATIENT REPORT AT BEDSIDE, PATIENT ENDORSED IN STABLE CONDITION.
--- NOTE | 2017-09-20 19:34 | NUR ---
RECEIVED PT IN STABLE CONDITION FROM AM NURS
--- NOTE | 2017-09-20 19:34 | NUR ---
CONTINUATION OF ABOVE NOTES: AWAKE,ALERT AND ORIENTED X4. ON TELE MONITOR. WITH 1:1 SITTER DUE TO SUICIDAL IDEATION. HL ON THE RT FA#[id number]. CLEAR AND PATENT.AMBULATORY TO THE BATHROOM. BED ON LOW POSITION. WILL CONTINUE TO MONITOR.
[2017-09-20 19:45] VITALS: BP 137/88
--- NOTE | 2017-09-20 20:30 | NUR ---
REPORT GIVEN TO ASHWIN DUKES FOR CONTINUITY OF CARE. PT IN STABLE CONDITION .
--- NOTE | 2017-09-20 20:31 | NUR ---
RECEIVED REPORT BEDSIDE REPORT FROM NURSE GILBERTO RN, PT STABLE, NO DISTRESS NOTED, PT CALM AND COOPERATIVE. 1:1 SITTER BY BEDSIDE, WILL CONTINUE TO MONITOR.
[2017-09-20] MEDS: QUEtiapine FUMARATE 25 MG TAB PO SCH (20:51)
--- NOTE | 2017-09-20 20:54 | NUR ---
DUE MEDICATION GIVEN, PT STABLE, NO DISTRESS NOTED, PT CALM AND COOPERATIVE, 1:1 SITTER BY BEDSIDE, WILL CONTINUE TO MONITOR.
--- NOTE | 2017-09-20 22:35 | NUR ---
PT REPORTED FEELING ANXIOUS, MEDICATION GIVEN, PT TOLERATED WELL, NO DISTRESS NOTED, CALM AND COOPERATIVE, 1:1 SITTER BY BEDSIDE, WILL CONTINUE TO MONITOR.
[2017-09-21] VITALS: BP 97/61
--- NOTE | 2017-09-21 00:06 | NUR ---
PT SLEEPING, NO DISTRESS NOTED, 1:1 SITTER BY BEDSIDE, WILL CONTINUE TO MONITOR.
--- NOTE | 2017-09-21 02:01 | NUR ---
PT SLEEPING, CALM, NO DISTRESS NOTED, 1:1 SITTER BY BEDSIDE WILL CONTINUE TO MONITOR.
--- NOTE | 2017-09-21 04:10 | NUR ---
PT SLEEPING, NO DISTRESS NOTED, 1:1 SITTER BY BEDSIDE
--- NOTE | 2017-09-21 05:00 | NUR ---
PT AWAKE, EATING CRACKERS, CALM AND COOPERATIVE, NO DISTRESS NOTED, 1:1 SITTER BY BEDSIDE
--- NOTE | 2017-09-21 07:20 | NUR ---
GAVE BEDSIDE REPORT TO DAY SHIFT NURSE LOUIS CHRISTOPHER, PT STABLE, NO DISTRESS NOTED, ENDORSED PLAN OF CARE, SITTER BY BEDSIDE.
--- NOTE | 2017-09-21 07:23 | NUR ---
RECEIVED PATIENT REPORT AT BEDSIDE FROM NIGHT NURSE. PATIENT IS SLEEPING AND EASILY AROUSABLE TO VOICE AND SHOWS NO S/S OF ACUTE DISTRESS ON ROOM AIR. NOTED IV ON THE RT AC SL, IV IS PATENT AND INTACT. SKIN INTACT. DENIES PAIN. PATIENT DENIES A/V HALLUCINATIONS, DENIES WANTING TO HARM SELF AND STATES, "I FEEL BETTER TODAY." DISCUSSED POC WITH PATIENT FOR TODAY AND HOSPITAL ENVIRONMENT. SITTER AT BEDSIDE FOR ASSISTANCE. PATIENT VERBALIZED UNDERSTANDING OF CARE.
[2017-09-21 08:00] VITALS: BP 107/76
--- NOTE | 2017-09-21 08:53 | NUR ---
DR GUILLERMO AT BEDSIDE SEEING PATIENT.
[2017-09-21] MEDS: LORazepam 1 MG TAB PO PRN ×3 (08:54→21:50)
--- NOTE | 2017-09-21 08:55 | NUR ---
ADMINISTERED ATIVAN 1 MG PO FOR C/O ANXIETY. PATIENT SWALLOWED MEDICATION WITHOUT DIFFICULTY.
--- NOTE | 2017-09-21 10:47 | NUR ---
CM NOTE CONCURRENT REVIEW FAXED TO [facility] / FAX# [phone], ATTN: SHAWNA #[phone]. PER JEREMÍAS OF [facility]# [phone], NO ACCEPTING PSYCH FACILITY AND NO BEDS AT THIS TIME. INQUIRY SENT TO [facility], [place] , [facility], [place], [facility], [place], [facility]. PER JEREMÍAS THEY HAVE THE NUMBER TO THE NURSING FLOOR WHERE PATIENT IS IN CASE THERE IS AN ACCEPTING PSYCH FACILITY AT A LATER TIME.
--- NOTE | 2017-09-21 15:43 | NUR ---
ADMINISTERED ATIVAN 1 MG PO FOR C/O ANXIETY. PATIENT SWALLOWED MEDICATION WITHOUT DIFFICULTY.
[2017-09-21 16:00] VITALS: BP 120/84
--- NOTE | 2017-09-21 19:25 | NUR ---
GAVE REPORT AT BEDSIDE TO NIGHT NURSE, PATIENT ENDORSED IN STABLE CONDITION.
--- NOTE | 2017-09-21 19:26 | NUR ---
PATIENT REPORT RECEIVED FROM MORNING NURSE AT BEDSIDE. PATIENT IS AWAKE, ALERT AND ORIENTED. NO SIGNS AND SYMPTOMS OF DISTRESS NOTED. NO COMPLAINTS OF PAIN AT THIS TIME. PATIENT IS COOPERATIVE, AND STATES THAT HE IS "FEELING A LOT BETTER". IV SITE NOTED ON RIGHT FOREARM, SALINE LOCKED. BED IN LOWEST POSITION, SIDE RAILS UP . 1:1 SITTER PRESENT IN ROOM. WILL CONTINUE TO MONITOR.
--- NOTE | 2017-09-21 21:00 | NUR ---
MEDICATION EDUCATION GIVEN. ADMINISTERED MEDICATIONS ORDERED. PATIENT TOLERATED WELL.
[2017-09-21] MEDS: QUEtiapine FUMARATE 25 MG TAB PO SCH (21:24)
[2017-09-22] VITALS: BP 129/89
--- NOTE | 2017-09-22 | NUR ---
CHECKED ON PATIENT. PATIENT IS ASLEEP. NO SIGNS AND SYMPTOMS OF DISTRESS NOTED. 1:1 SITTER PRESENT. WILL CONTINUE TO MONITOR
--- NOTE | 2017-09-22 03:45 | NUR ---
CHECKED ON PATIENT. PATIENT IS ASLEEP. NO SIGNS AND SYMPTOMS OF DISTRESS NOTED. BREATHING EVEN AND UNLABORED. 1:1 SITTER PRESENT. WILL CONTINUE TO MONITOR
--- NOTE | 2017-09-22 05:30 | NUR ---
CHECKED ON PATIENT. PATIENT IS ASLEEP. NO SIGNS AND SYMPTOMS OF DISTRESS NOTED. BREATHING EVEN AND UNLABORED. 1:1 SITTER PRESENT. WILL CONTINUE TO MONITOR
--- NOTE | 2017-09-22 07:04 | NUR ---
PATIENT REPORT GIVEN TO MORNING NURSE AT BEDSIDE. PATIENT IS IN STABLE CONDITION.
--- NOTE | 2017-09-22 07:05 | NUR ---
RECEIVED REPORT FROM MODEL PHOTOGRAPHERS' RN. PATIENT IS AAOX4, NO SIGNS AND SYMPTOMS OF ACUTE DISTRESS NOTED AT THIS TIME. PATIENT HAS A SITTER AT THIS TIME. PATIENT DENIES ANY PAIN, ALSO DENIES ANY SUICIDAL IDEATION AT THIS TIME. HAS IV TO RIGHT FOREARM 22G, ON SALINE LOCK AT THIS TIME. PATIENTS BED IS IN LOWEST POSITION, SIDE RAILS UP X2, LETS SITTER KNOW TO NOTIFY THE NURSE IF HE NEEDS ANYTHING. DUE TO CALL LIGHT BEING ADJUSTED FOR THE ROOM. WILL CONTINUE TO MONITOR.
[2017-09-22 08:00] VITALS: BP 96/54
[2017-09-22] MEDS: LORazepam 1 MG TAB PO PRN ×3 (08:41→20:41)
[2017-09-22] MEDS ORDERED: ALUMINUM HYD/MAG/SIMETHICONE 30 ML UDC PO PRN (09:50)
--- NOTE | 2017-09-22 12:15 | NUR ---
PATIENT REQUESTING TO TAKE A SHOWER. WRAPPED UP HIS ARM AND ESCORTED HIM TO THE SHOWER.
--- NOTE | 2017-09-22 13:40 | NUR ---
PATIENT RESTING IN BED.
[2017-09-22 16:00] VITALS: BP 119/84
--- NOTE | 2017-09-22 19:14 | NUR ---
ENDORSED PATIENT TO CONTROL CLERK AUDITING RN FOR CONTINUITY OF CARE. PATIENT IN STABLE CONDITION.
--- NOTE | 2017-09-22 19:30 | NUR ---
RECEIVED FROM AM RN IN BED READING A MAGAZINE. AWAKE AND ALERT. ABLE TO VERBALIZE NEEDS WELL. NO SOB. NO PAIN COMPLAINTS DONE. CALL LIGHT WITH IN REACH. 51 50 STATUS AND SITTER 1:1. CARE PLANS FOR THE NIGHT DISCUSSED WITH HIM.
[2017-09-22] MEDS: QUEtiapine FUMARATE 25 MG TAB PO SCH (20:41)
[2017-09-23 00:33] VITALS: BP 102/63
--- NOTE | 2017-09-23 00:36 | NUR ---
PT. NO COMPLAINTS DONE. SLEEPING WELL. WAKES UP EASILY WHEN TOUCHED OR CALLED BY NAME. SITTER 1:1.
--- NOTE | 2017-09-23 03:15 | NUR ---
SLEEPING. SITTER 1:1. NO COMPLAINTS DONE SINCE START OF SHIFT.
--- NOTE | 2017-09-23 06:47 | NUR ---
PT. AWAKE AT THIS TIME. NO COMPLAINTS DONE. SITTER 1:1 .
--- NOTE | 2017-09-23 07:23 | NUR ---
RECEIVED FROM RAG SHREDDER NURSE. PT IS IN SLEEPING IN BED. EASILY AROUSED TO NAME. ABLE TO VERBALIZE NEEDS WELL. NO S/S OF ACUTE DISTRESS. DENIES PAIN. DENIES SUICIDAL IDEATION. NO S/S OF ACUTE DISTRESS. 5150 STATUS AND SITTER 1:1. DISCUSSED CARE PLAN WITH PT, PT VERBALIZED UNDERSTANDING.
--- NOTE | 2017-09-23 07:50 | NUR ---
PT ACCIDENTALLY PULLED OUT HIS IV CATH. TIP INTACT, NO BLEEDING NOTED. PT REFUSED TO HAVE AN IV INSERT AT THIS TIME.
[2017-09-23] MEDS: LORazepam 1 MG TAB PO PRN (07:55)
[2017-09-23 08:00] VITALS: BP 96/55
--- NOTE | 2017-09-23 14:07 | NUR ---
PT REEVALUATED BY DR. SOLORZANO ([facility]), STATED THAT PT NO LONGER MEETS 5150 HOLD CRITERIA AND CAN GO HOME IF MEDICALLY CLEARED. PAGED DR. GUILLERMO, AWAITING FOR CALL BACK.
--- NOTE | 2017-09-23 15:20 | NUR ---
PT HAS BEEN DISCHARGED PER MD ORDER. PSYCHIATRIC [facility]SELL[facility]GR[facility] AND [facility] RESOURCES PROVIDED. MADE PT AWARE THAT HE NEEDS TO FOLLOW UP WITH PRIMARY WITHIN A WEEK AND SEEK PSYCHIATRIC THERAPY FROM RESOURCES PACKET OR GET A REFERRAL FROM PCP. PT LEFT IN STABLE CONDITION AND WITH ALL HIS BELONGINGS. PT HAS SIGN ALL PAPERWORK. PT HAS BEEN ESCORTED BY MARKET PRESIDENT TO THE LOBBY.
== END 2017-09-23 15:20 | disposition home or self-care (01) | DRG 750 ==
LOC: MED 19:37 → MTU 09-18 08:59
PROVIDERS: ADMIT Internal Medicine; ATTEND Internal Medicine
DX: F25.1 Schizoaffective disorder, depressive type (principal); F23 Brief psychotic disorder; R45.851 Suicidal ideations; F10.20 Alcohol dependence, uncomplicated; F41.0 Panic disorder [episodic paroxysmal anxiety]; F41.9 Anxiety disorder, unspecified; Y90.7 Blood alcohol level of 200-239 mg/100 ml; R12 Heartburn
CPT/HCPCS: 36415; 80053; 80305; 85025; 87081; 93005; 99285; A9153; G0480; G0482; J3411; J3475; J3490; J7030; J7042

== ENCOUNTER 2018-12-18 00:52 | Emergency (ER) | payer MEDICAID, OTHER ==
[~2018-12-18] VITALS: Ht 162.6 cm; Wt 69.9 kg
[2018-12-18 00:57] VITALS: BP 150/90
--- NOTE | 2018-12-18 00:57 | NUR ---
TO BED # 09 AMBULATORY
--- NOTE | 2018-12-18 01:14 | NUR ---
PT TO ED WITH C/O HALLUCINATIONS X TODAY. PT DENIES HOMICIDAL/SUICIDAL IDEATION. PT IS ALERT TO NAME, BIRTHDAY, PLACE, AND EVENT. PT REPORTS "SPIRITUAL AND DEMONIC VOICES" PT DENIES ANY PAIN. PT PLACED INTO BED, PENDING MD GUAJARDO.
[2018-12-18] MEDS ORDERED: HALOPERIDOL IM 5 MG/ML VIAL IM ONE (01:15)
[2018-12-18] MEDS ORDERED: NACL 0.9% 1,000 ML IV ONE (01:15)
[2018-12-18 01:28] LABS: BASOPHILS % (AUTO) 0.6 % (0.0-2.0); EOSINOPHILS # (AUTO) 0.1 K/uL (0-0.4); EOSINOPHILS % (AUTO) 2.2 % (0.0-4.0); HEMATOCRIT 46.1 % (36-52); HEMOGLOBIN 15.9 g/dL (12.0-18.0); LYMPHOCYTES # (AUTO) 1.4 K/uL (2.0-11.5); LYMPHOCYTES % (AUTO) 25.5 % (20.5-51.1); MEAN CORPUSCULAR HEMOGLOBIN 30 pg (27-31); MEAN CORPUSCULAR HGB CONC 35 g/dL (33-37); MEAN CORPUSCULAR VOLUME 87.2 fL (80-94); MONOCYTES # (AUTO) 0.5 K/uL (0.8-1.0); MONOCYTES % (AUTO) 10.1 % (1.7-9.3); NEUTROPHILS # (AUTO) 3.3 K/uL (1.8-7.7); NEUTROPHILS % (AUTO) 61.6 % (42.2-75.2); PLATELET COUNT (AUTO) 201 K/uL (140-450); RED BLOOD CELL COUNT(AUTO) 5.29 MIL/uL (4.20-6.10); RED CELL DISTRIBUTION WIDTH 14.8 % (11.6-13.7); WHITE BLOOD COUNT (AUTO) 5.4 K/uL (4.8-10.8)
[2018-12-18 01:38] LABS: ANION GAP 17.6 (8-16); CARBON DIOXIDE 25.6 mmol/L (21-32); CHLORIDE 101 mmol/L (98-107); CREATININE 0.8 mg/dL (0.7-1.3); GFR ARICAN-AMERICAN 138 mL/min (>90); GLUCOSE 111 mg/dL (74-106); POTASSIUM 3.2 mmol/L (3.5-5.1); SODIUM SERUM 141 mmol/L (136-145); UREA NITROGEN, BLOOD 6 mg/dL (7-18)
[2018-12-18 01:44] LABS: ALBUMIN 4.3 g/dL (3.4-5.0); ASPARTATE AMINOTRANSFERASE 67 U/L (15-37); TOTAL BILIRUBIN 0.6 mg/dL (0.0-1.0)
[2018-12-18 01:54] LABS: BARBITURATE, URINE NEG. ng/ml (NEG <=200); BENZODIAZEPINE, URINE NEG. ng/mL (NEG <=200); CANNABINOID, URINE NEG. ng/mL (NEG <=50); COCAINE, URINE NEG. ng/mL (NEG <=300); OPIATE, URINE NEG. ng/mL (NEG <=2000); PHENCYCLIDINE SCREEN,URINE NEG. ng/mL (NEG <=25)
[2018-12-18 01:55] LABS: ACETAMINOPHEN < 0.5 ug/ml (10-30); SALICYLATE < 2.8 mg/dL (2.8-20.0)
[2018-12-18] MEDS ORDERED: LORazepam 2 MG/ML VIAL IVP ONE (01:55)
--- NOTE | 2018-12-18 01:55 | NUR ---
PT C/O AGITATION. ER MD AWARE. ORDERS RECIEVED.
--- NOTE | 2018-12-18 03:08 | NUR ---
PT SLEEPING, NO NEW COMPLAINTS OF AGITATION AT THIS TIME.
--- NOTE | 2018-12-18 05:30 | NUR ---
PT SLEEPING, ON CONTINUOUS DOOR CLAMPER. VSS. WILL CONTINUE TO MONITOR.
[2018-12-18 06:29] VITALS: BP 106/61
--- NOTE | 2018-12-18 06:29 | NUR ---
Patient discharged with v/s stable. Written and verbal after care instructions given and explained. Patient verbalized understanding. Ambulatory with steady gait. All questions addressed prior to discharge. Advised to follow up with PMD. REQUESTED RESOURCES FOR A/A AND N/A PROVIDED FOR PT.
--- NOTE | 2018-12-18 06:29 | NUR ---
IV removed, catheter intact and site benign. Applied folded 4x4 gauze and tape to stop bleeding.
== END 2018-12-18 00:57 | disposition home or self-care (01) ==
LOC: MED 00:52
DX: F10.129 Alcohol abuse with intoxication, unspecified (principal); F15.10 Other stimulant abuse, uncomplicated; K21.9 Gastro-esophageal reflux disease without esophagitis; F20.9 Schizophrenia, unspecified; Z79.899 Other long term (current) drug therapy
CPT/HCPCS: 36415; 80053; 80305; 85025; 96372; 96374; 99283; G0480; G0482; J1630; J2060; J7030

== ENCOUNTER 2020-07-29 21:14 | Emergency (ER) | payer MEDICAID ==
--- NOTE | 2020-07-29 21:25 | NUR ---
PATIENT LEFT WITHOUT BEING SEEN BY DR. LEZAMA. NO FURTHER CARE PROVIDED FOR PATIENT.
== END 2020-07-29 21:25 | disposition left against medical advice (07) ==
LOC: MED 21:14
DX: Z53.21 Procedure and treatment not carried out due to patient leaving prior to being seen by health care provider (principal)

== ENCOUNTER 2021-11-01 18:19 | Emergency (ER) | payer MEDICAID ==
[~2021-11-01] VITALS: Ht 162.6 cm; Wt 77.1 kg
[2021-11-01 18:28] VITALS: BP 145/101
--- NOTE | 2021-11-01 18:39 | NUR ---
DR JAMES AT BEDSIDE EXAMINING PT
[2021-11-01] MEDS ORDERED: NACL 0.9% 1,000 ML IV ONE ×2 (18:40→21:55)
--- NOTE | 2021-11-01 18:48 | NUR ---
[place] [employer] AT BEDSIDE
--- NOTE | 2021-11-01 19:12 | NUR ---
BLOOD WORK COLLECTED, HANDED TO SOFÍA FERGUSON
--- NOTE | 2021-11-01 19:13 | NUR ---
40/M BIB SELF WITH C/O SI SINCE TODAY. STATES HE IS HEARING VOICES TELLING HIM TO HARMSELF, STATES "I'M GOING TO JUMP OFF A BRIDGE, JANETTE DONE IT BEFORE." ADMITS TO CONSUMING ALCOHOL TODAY, DENIES DRUG USE, DENIES HI. MEDHX: MENTALLY IMPAIRED ALLERGIES: NKA
[2021-11-01 19:21] LABS: BASOPHILS # (AUTO) 0.1 K/uL (0.00-0.22); BASOPHILS % (AUTO) 1.1 % (0.0-2.0); EOSINOPHILS % (AUTO) 0.7 % (0.0-4.0); HEMATOCRIT 43.3 % (36-52); HEMOGLOBIN 14.9 g/dL (12.0-18.0); LYMPHOCYTES # (AUTO) 1.7 K/uL (2.0-11.5); LYMPHOCYTES % (AUTO) 26.6 % (20.5-51.1); MEAN CORPUSCULAR HEMOGLOBIN 30 pg (27-31); MEAN CORPUSCULAR HGB CONC 35 g/dL (33-37); MEAN CORPUSCULAR VOLUME 86.4 fL (80-94); MONOCYTES # (AUTO) 0.3 K/uL (0.8-1.0); MONOCYTES % (AUTO) 5.4 % (1.7-9.3); NEUTROPHILS # (AUTO) 4.1 K/uL (1.8-7.7); NEUTROPHILS % (AUTO) 66.2 % (42.2-75.2); PLATELET COUNT (AUTO) 324 K/uL (140-450); RED BLOOD CELL COUNT(AUTO) 5.01 MIL/uL (4.20-6.10); RED CELL DISTRIBUTION WIDTH 14.3 % (11.6-13.7); WHITE BLOOD COUNT (AUTO) 6.2 K/uL (4.8-10.8)
--- NOTE | 2021-11-01 19:25 | NUR ---
Pt report given to ASHWIN ANAYA. Transfer of care at this time. Patient is on resting on bed with no signs of distress.
--- NOTE | 2021-11-01 19:30 | NUR ---
Received report from off-going nurse. Care assumed. Received pt in bed, without distress. Calm. Pt c/o SI w/ plans to drive his car off the bridge. Pt also states he has thoughts of cutting his throat w/ a knife. Pt reports no prior suicide attempts, however he has a knife readily available. Pt reports hx of schizophrenia, depression and anxiety. Pt states he takes seroquel, however, last dose taken was last week. Plan of care reviewed. Pt receptive. Pt noted w/ 20g IV on R FA.
[2021-11-01 20:02] LABS: ALBUMIN 4.1 g/dL (3.4-5.0); ANION GAP 15.9 (8-16); ASPARTATE AMINOTRANSFERASE 27 U/L (15-37); CARBON DIOXIDE 25.7 mmol/L (21-32); CHLORIDE 103 mmol/L (98-107); CREATININE 0.9 mg/dL (0.6-1.3); GFR ARICAN-AMERICAN 119 mL/min (>90); GLUCOSE 112 mg/dL (74-106); POTASSIUM 3.6 mmol/L (3.5-5.1); SODIUM SERUM 141 mmol/L (136-145); UREA NITROGEN, BLOOD 5 mg/dL (7-18)
[2021-11-01 20:07] LABS: SALICYLATE < 2.8 mg/dL (2.8-20.0)
[2021-11-01] MEDS ORDERED: LORazepam 1 MG TAB PO SCH (20:45)
--- NOTE | 2021-11-01 21:38 | NUR ---
spoke with telepsych doctor about update on patient.
[2021-11-01] MEDS ORDERED: MIDAZOLAM 2 MG/2 ML VIAL IVP ONE (21:55)
--- NOTE | 2021-11-01 22:00 | NUR ---
Pt states he feels anxious and requesting med to help w/ anxiety. Informed Dr. Gaviria and received orders for versed 2mg IVP and NS 1L. Back in room. Pt noted w/ 20g IV on R FA. Administered versed IVP without event. NS started. Provided snacks, per pt request.
[2021-11-01 22:23] LABS: APPEARANCE,URINE CLEAR (CLEAR); BILIRUBIN,URINE NEGATIVE (NEGATIVE); BLOOD, URINE NEGATIVE (NEGATIVE); COLOR,URINE YELLOW (YELLOW); LEUKOCYTE ESTERASE ,URINE NEGATIVE (NEGATIVE); NITRITE, URINE NEGATIVE (NEGATIVE); UGLUCOSE NEGATIVE (NEGATIVE)
[2021-11-01 22:25] LABS: ACETAMINOPHEN < 0.5 ug/ml (10-30)
[2021-11-01 23:03] LABS: BARBITURATE, URINE NEGATIVE ng/ml (NEG <=200); BENZODIAZEPINE, URINE POSITIVE ng/mL (NEG <=200); CANNABINOID, URINE NEGATIVE ng/mL (NEG <=50); COCAINE, URINE NEGATIVE ng/mL (NEG <=300); OPIATE, URINE NEGATIVE ng/mL (NEG <=2000); PHENCYCLIDINE SCREEN,URINE NEGATIVE ng/mL (NEG <=25)
--- NOTE | 2021-11-02 02:15 | NUR ---
Pt asleep in bed. Appears without any distress. Snoring. VSS. Continue to monitor.
--- NOTE | 2021-11-02 04:02 | NUR ---
Pt woke up from sleep. Ambulated to toilet and back to room via steady and balanced gait. Pt goes back to sleep.
--- NOTE | 2021-11-02 04:45 | NUR ---
patient in the bathroom actively vomiting. ERMD made aware.
--- NOTE | 2021-11-02 07:10 | NUR ---
Calender Runner in room obtaining repeat alcohol level
--- NOTE | 2021-11-02 07:25 | NUR ---
Hand off report given to receiving RNs, Meghan.
--- NOTE | 2021-11-02 07:54 | NUR ---
PT PROVIDED WITH BREAKFAST TRAY BEDSIDE
[2021-11-02] MEDS ORDERED: LORazepam 1 MG TAB PO ONE (08:00)
--- NOTE | 2021-11-02 09:05 | NUR ---
40 Y/O M BIB SELF C/O SI. TODAY WHEN ASKED IF PT WANT'S TO HURT HIMSELF OR OTHERS PT STATED " I WANT TO HURT MYSELF BUT NOT OTHERS". PT ALSO STATED HE FEELS "ANXIUS". PT IS CALM AT THIS TIME. VITALS ARE STABLE. WILL CONTINUE TO MONITOR. WILL WAIT FOR TELEPSYCH EVALUATION. MEDHX: MENTALLY IMPAIRED ALLERGIES: NKA
--- NOTE | 2021-11-02 09:30 | NUR ---
PT GETTING TELEPSYCH WITH DR Grewal
--- NOTE | 2021-11-02 09:48 | NUR ---
SPOKE WITH DR Mendieta POST TELESYCH EVALUATION. DR Mendieta ORDERS: CONTINUE 51/50 HOLD LOOK FOR PLACEMENT GABAPENTIN 300 MG TID CLONIDINE 0.1 MG Q4 PRN FOR AGINATION, HOLD IF BP IS LESS THEN 90/60 AND HR LESS THEN 60 QUETIAPINE/SEROQUEL [address] GONZALES AWARE, SHE WILL PUT IN ALL ORDERS.
[2021-11-02] MEDS ORDERED: CLONIDINE HYDROCHLORIDE 0.1 MG TAB PO PRN (09:50)
--- NOTE | 2021-11-02 10:05 | NUR ---
PT RESTING/ SLEEPING COMFORTABLY.
--- NOTE | 2021-11-02 10:45 | NUR ---
Packet faxed to: [facility]/Blanka Almaguer of the [facility]
--- NOTE | 2021-11-02 11:45 | NUR ---
LUNCH IS SURVED AND IN PT ROOM AT BEDSIDE.
--- NOTE | 2021-11-02 12:29 | NUR ---
PT EATING HIS LUNCH.
--- NOTE | 2021-11-02 12:53 | NUR ---
LEXI FROM [facility] CALLED ABOUT PLACEMENT, HE WILL CALL BACK IF THEY CAN TAKE HIM.
[2021-11-02] MEDS ORDERED: GABAPENTIN 300 MG CAP PO SCH (13:00)
--- NOTE | 2021-11-02 13:43 | NUR ---
PT EXCEPTED TO [facility] ROOM [address] KUMAR [phone]. WILL CALL FOR REPORT.
--- NOTE | 2021-11-02 14:35 | NUR ---
CALLED [facility] AND GAVE REPORT TO MARIELOS. ETA TO BE PICKED UP IS 45 MIN TO ONE HOUR.
[2021-11-02 15:21] VITALS: BP 148/92
--- NOTE | 2021-11-02 15:24 | NUR ---
Chart checked and completed. The patient's care was reviewed and supervised by Melly Mccarty RN.
[2021-11-02] MEDS ORDERED: QUEtiapine FUMARATE 25 MG TAB PO SCH (21:00)
== END 2021-11-02 15:21 ==
LOC: MED 18:19
DX: F10.129 Alcohol abuse with intoxication, unspecified (principal); R45.851 Suicidal ideations; Z20.822 Contact with and (suspected) exposure to COVID-19
CPT/HCPCS: 36415; 71045; 80053; 80305; 81003; 82550; 84484; 85025; 87426; 93005; 96361; 96374; 99285; G0480; G0482; J2250; J7030; Q0092; U0003

== ENCOUNTER 2022-02-09 15:52 | Emergency (ER) | payer MEDICAID ==
[~2022-02-09] VITALS: Ht 162.6 cm; Wt 68.5 kg
[2022-02-09 16:11] VITALS: BP 127/88
[2022-02-09] MEDS ORDERED: NACL 0.9% 1,000 ML IV ONE (16:50)
[2022-02-09] MEDS ORDERED: LORazepam 2 MG/ML VIAL IVP ONE (16:50)
[2022-02-09] MEDS ORDERED: CLONIDINE HYDROCHLORIDE 0.1 MG TAB PO ONE (16:50)
[2022-02-09] MEDS ORDERED: ONDANSETRON 4 MG/2 ML VIAL IVP ONE (16:50)
[2022-02-09 17:14] LABS: BASOPHILS % (AUTO) 0.4 % (0.0-2.0); EOSINOPHILS % (AUTO) 0.5 % (0.0-4.0); HEMATOCRIT 46.7 % (36-52); HEMOGLOBIN 16.3 g/dL (12.0-18.0); MEAN CORPUSCULAR HEMOGLOBIN 30 pg (27-31); MEAN CORPUSCULAR HGB CONC 35 g/dL (33-37); MEAN CORPUSCULAR VOLUME 86.2 fL (80-94); MONOCYTES # (AUTO) 0.5 K/uL (0.8-1.0); MONOCYTES % (AUTO) 5.6 % (1.7-9.3); NEUTROPHILS # (AUTO) 6.6 K/uL (1.8-7.7); NEUTROPHILS % (AUTO) 71.5 % (42.2-75.2); PLATELET COUNT (AUTO) 340 K/uL (140-450); RED BLOOD CELL COUNT(AUTO) 5.42 MIL/uL (4.20-6.10); RED CELL DISTRIBUTION WIDTH 13.7 % (11.6-13.7); WHITE BLOOD COUNT (AUTO) 9.2 K/uL (4.8-10.8)
--- NOTE | 2022-02-09 17:41 | NUR ---
41 y/o male bib self with c/o suicidal ideation. Patient states "he is hearing voices that are telling him to kill himself." Patient has a plan and has felt like this before. Patient's plan is to jump off a bridge in [place]. Patient has not been taking his medication because they are not working. Medical History: SCHIZOPHRENIA MEDS: DENIES
[2022-02-09 18:13] LABS: ALBUMIN 4.6 g/dL (3.4-5.0); ANION GAP 19.2 (8-16); ASPARTATE AMINOTRANSFERASE 35 U/L (15-37); CARBON DIOXIDE 22.5 mmol/L (21-32); CHLORIDE 100 mmol/L (98-107); CREATININE 0.8 mg/dL (0.6-1.3); GFR ARICAN-AMERICAN 136 mL/min (>90); GLUCOSE 108 mg/dL (74-106); POTASSIUM 3.7 mmol/L (3.5-5.1); SODIUM SERUM 138 mmol/L (136-145); TOTAL BILIRUBIN 0.7 mg/dL (0.0-1.0); UREA NITROGEN, BLOOD 6 mg/dL (7-18)
[2022-02-09 18:20] LABS: SALICYLATE < 2.8 mg/dL (2.8-20.0)
[2022-02-09 18:21] LABS: ACETAMINOPHEN < 0.5 ug/ml (10-30)
--- NOTE | 2022-02-09 18:22 | NUR ---
TELEPSYCH REQUEST SENT
[2022-02-09 19:19] LABS: BARBITURATE, URINE NEGATIVE ng/ml (NEG <=200); BENZODIAZEPINE, URINE NEGATIVE ng/mL (NEG <=200); CANNABINOID, URINE NEGATIVE ng/mL (NEG <=50); COCAINE, URINE NEGATIVE ng/mL (NEG <=300); OPIATE, URINE NEGATIVE ng/mL (NEG <=2000); PHENCYCLIDINE SCREEN,URINE NEGATIVE ng/mL (NEG <=25)
--- NOTE | 2022-02-09 19:23 | NUR ---
Pt report given to WHIT Jerez. Transfer of care at this time.
--- NOTE | 2022-02-09 19:34 | NUR ---
PT EATING. PT STATES HE STILLS FEELS SI
--- NOTE | 2022-02-09 21:44 | NUR ---
PT RESTING . [facility]
--- NOTE | 2022-02-09 23:26 | NUR ---
DEREK ON PHONE WITH BRIAN
--- NOTE | 2022-02-10 01:15 | NUR ---
PT RESTING. X2 SIDE RAILS UP. VSS.
--- NOTE | 2022-02-10 02:50 | NUR ---
PT REQUESTING SOMTHING FOR SLEEP. PT RESTLESS BUT ACTING APPROPIATELY
[2022-02-10] MEDS ORDERED: LORazepam 2 MG/ML VIAL IVP ONE (03:35)
--- NOTE | 2022-02-10 04:00 | NUR ---
PT TOLERATED ATIVAN WELL. PT RESTING WITH EYES CLOSED.
--- NOTE | 2022-02-10 06:00 | NUR ---
PT SLEEPING WITH EYES CLOSED. X2 RAILS UP FOR SAFETY. BED LOCKED IN LOWEST POSITION
--- NOTE | 2022-02-10 07:30 | NUR ---
REPORT RECEIVED FROM DEREK SHERMAN. ASSUMED CARE AT THIS TIME
--- NOTE | 2022-02-10 07:45 | NUR ---
PT STATES NEW ONSET OF ANXIETY
[2022-02-10] MEDS: OLANZapine 5 MG ODT PO PRN ×2 (08:12→16:00)
--- NOTE | 2022-02-10 08:38 | NUR ---
pt at rest and sleeping . no visible distress. respirations even and unlabored. pt in view, bed at lowest position , bed rail up x2
--- NOTE | 2022-02-10 12:08 | NUR ---
PT PROVIDED WITH LUNCH. PT AT REST . LEFT AT BEDSIDE
--- NOTE | 2022-02-10 15:45 | NUR ---
PT REPORTS NEW ONSET OF ANXIETY AND AGITATION .
--- NOTE | 2022-02-10 17:11 | NUR ---
SPOKE WITH LEXI FROM [facility] FOR POSIBLE PLACEMENT
[2022-02-10 17:12] VITALS: BP 130/80
--- NOTE | 2022-02-10 19:25 | NUR ---
REPORT GIVEN TO DEREK SHERMAN. ALL QUESTIONS ANSWERED. TRANSFER OF CARE AT THIS TIME
--- NOTE | 2022-02-10 19:45 | NUR ---
Patient to be transferred to [facility]. Is being transferred due to HIGHER LEVEL OF CARE. Receiving facility has accepting physician and available space. ER physician has signed transfer form. Patient or responsible alliance party has agreed to transfer and signed form. Patient belongings inventoried and will be sent with patient. Copy of nursing notes, lab reports, EKG, Physicians Orders and X-rays to be sent with patient. Report called to ANDREW at receiving facility. [facility] ambulance service has been called for transfer. ETA is 45 MIN.
--- NOTE | 2022-02-10 19:50 | NUR ---
[facility] HERE TO [employer] PT FOR TRANSPORT TO [facility]
--- NOTE | 2022-02-10 20:10 | NUR ---
PT TRANSFERRED TO [facility] AT THIS TIME IN STABLE CONDITION.
--- NOTE | 2022-02-10 20:39 | NUR ---
The patient's care was reviewed and supervised by Janelle Haley RN.
== END 2022-02-09 20:10 | disposition short-term general hospital (02) ==
LOC: MED 15:52
DX: R45.851 Suicidal ideations (principal); Z20.822 Contact with and (suspected) exposure to COVID-19; F20.9 Schizophrenia, unspecified; F29 Unspecified psychosis not due to a substance or known physiological condition; R44.0 Auditory hallucinations; F10.129 Alcohol abuse with intoxication, unspecified; K21.9 Gastro-esophageal reflux disease without esophagitis; Z79.899 Other long term (current) drug therapy; Z98.890 Other specified postprocedural states
CPT/HCPCS: 36415; 80053; 80305; 85025; 87426; 87635; 96361; 96374; 96375; 96376; 99285; C9803; G0480; G0482; J2060; J2405; J7030